=== PATIENT | female | born 1925 | race Caucasian/White ===

== ENCOUNTER 2017-01-12 10:16 | Emergency (ER) | payer OTHER ==
[~2017-01-12] VITALS: Ht 162.6 cm; Wt 65.0 kg
[2017-01-12] VITALS (7 sets, daily range): BP systolic 111–151; BP diastolic 62–95; PULSE 68–109; RESP 18–20; TEMP 98.1; O2SAT 94–97
[~2017-01-12 10:16] MED LIST: ACET5TAB2 PO; CALTTAB PO; FURO20TA PO; GLIM1TAB PO; LEVOTAB PO; LOMO2.5T PO; LORA10TA PO; LOSA25TA PO; OMEP40CA2 PO; RANI150T PO; ZOCO20TA PO
[2017-01-12] MEDS ORDERED: SODIUM CHLORIDE 0.9% FLUSH 5 ML FLUSH IVF PRN (12:15)
[2017-01-12 12:28] LABS: APTT (PATIENT) 26.7 SEC (24.3-30.1); AUTOMATED NEUTROPHIL # 3.1 TH/MM3 (1.8-7.7); BASOPHIL % 0.3 % (0.0-2.0); EOSINOPHIL % 0.6 % (0.0-4.0); HEMATOCRIT 37.9 % (35.0-46.0); HEMO FLAGS DIFF FINAL; INTERNATIONAL NORMALIZED RATIO 1.1 RATIO; LYMPH % 33.2 % (9.0-44.0); LYMPHOCYTE # 1.8 TH/MM3 (1.0-4.8); MEAN CELL VOLUME 91.7 FL (80.0-100.0); MEAN CORPUSCULAR HEMOGLOBIN 31.3 PG (27.0-34.0); MEAN CORPUSCULAR HGB CONC 34.1 % (32.0-36.0); MONO % 8.5 % (0.0-8.0); NEUT % 57.4 % (16.0-70.0); PLATELET COUNT 184 TH/MM3 (150-450); PROTHROMBIN TIME - PATIENT 12.1 SEC (9.8-11.6); RED BLOOD COUNT 4.13 MIL/MM3 (4.00-5.30); RED CELL DISTRIBUTION WIDTH 13.5 % (11.6-17.2); WHITE BLOOD COUNT 5.4 TH/MM3 (4.0-11.0)
[2017-01-12 12:42] LABS: ALT (GPT) 20 U/L (10-53); ANION GAP 12 MEQ/L (5-15); AST (GOT) 19 U/L (15-37); BICARBONATE 26.1 MEQ/L (21.0-32.0); BLOOD UREA NITROGEN 9 MG/DL (7-18); CHLORIDE 107 MEQ/L (98-107); GLOMERULAR FILTRATION RATE 68 ML/MIN (>89); POTASSIUM 3.2 MEQ/L (3.5-5.1); SODIUM (NA) 145 MEQ/L (136-145)
[2017-01-12 12:44] LABS: ALKALINE PHOSPHATASE 54 U/L (45-117); TOTAL BILIRUBIN ADULT 0.5 MG/DL (0.2-1.0)
[2017-01-12] MEDS ORDERED: METF500T PO (13:27)
[2017-01-12] MEDS ORDERED: [UNRECOGNIZED DRUG - CODE] CHEW (13:33)
[2017-01-12] MEDS ORDERED: TRIA.1%T TOPICAL (13:33)
[2017-01-12] MEDS ORDERED: ZIPR1CAP6 PO (13:33)
[2017-01-12] MEDS ORDERED: CYANOCOBALAMIN CHEW (13:33)
[2017-01-12] MEDS ORDERED: ASCO1CHW3 CHEW (13:33)
--- NOTE | 2017-01-12 13:42 | PD ---
HPI Chief Complaint: Psychiatric Symptoms Time Seen by Provider: 12:00 Travel History International Travel<30 days: No Contact w/Intl Traveler<30days: No Traveled to known affect area: No History of Present Illness HPI 89-year-old female presents through triage by referral with her primary care physician for auditory hallucinations of hearing music that is not there. She states she has had this happen to her intermittently since October. She states it is affecting her sleep. She denies other associated symptoms. Patient denies specifically any suicidal ideation or pain. History is limited by patient. PFSH Past Medical History Arthritis: Yes (KNEES) Asthma: No Autoimmune Disease: No Blood Disorders: No Heart Rhythm Problems: No Cancer: Yes (THROAT) Cardiovascular Problems: Yes (HTN, CHOL) High Cholesterol: Yes Chemotherapy: Yes (LYMPHOMA) Chest Pain: No Congestive Heart Failure: No COPD: No Cerebrovascular Accident: No Diabetes: Yes Patient Takes Glucophage: Yes Diminished Hearing: No Endocrine: Yes Gastrointestinal Disorders: Yes GERD: Yes Glaucoma: Yes (LEFT EYE, USES DROPS) Genitourinary: Yes (PESSARY FOR FALLEN BLADDER) Headaches: Yes Hepatitis: No Hiatal Hernia: No Hypertension: Yes Immune Disorder: No Implanted Vascular Access Dvce: Yes (removed) Kidney Stones: No Musculoskeletal: Yes Neurologic: Yes Psychiatric: No Reproductive: Yes (HYSTERECTOMY FOR FIBROID AFTER 3RD CHILD([id number])) Respiratory: No Migraines: Yes Myocardial Infarction: No Radiation Therapy: No Renal Failure: No Seizures: No Sickle Cell Disease: No Sleep Apnea: No Ulcer: No Influenza Vaccination: Yes Menopausal: Yes Past Surgical History Abdominal Surgery: No AICD: No Appendectomy: No Arteriovenous Shunt: No Cardiac Surgery: No Cholecystectomy: Yes Ear Surgery: No Endocrine Surgery: No Eye Surgery: Yes Genitourinary Surgery: No Gynecologic Surgery: Yes (HYSTER) Hysterectomy: Yes Insulin Pump: No Joint Replacement: Yes (lanny knee) Neurologic Surgery: No Oral Surgery: Yes (TEETH REMOVED FOR DENTURES) Pacemaker: No Thoracic Surgery: No Other Surgery: Yes Social History Alcohol Use: No Tobacco Use: No Substance Use: No Allergies-Medications (Allergen,Severity, Reaction): Coded Allergies: Codeine (Verified Allergy, Severe, Nausea/Vomiting/diarrhea, 10/22/16) Penicillin (Verified Allergy, Severe, Nausea/Vomiting/diarrhea, 10/22/16) Sulfa (Verified Allergy, Severe, Nausea/Vomiting, 10/22/16) Cipro (Verified Allergy, Intermediate, Nausea/Vomiting, 10/22/16) Latex (Verified Allergy, Unknown, 10/22/16) Uncoded Allergies: MILK & MILK PRODUCTS (Allergy, Intermediate, STOMACH PAINS/, 09/29/15) Reported Meds & Prescriptions Reported Meds & Active Scripts Active Lomotil (Diphenoxylate-Atropine) 2.5-0.025 Mg Tab 1 Tab PO Q6H PRN 3 Days Reported Vitamin C Gummies (Ascorbic Acid) 120 Mg Chew 240 Mg CHEW DAILY D3 Adult Gummy (Cholecalciferol) 1,000 Unit Chew 2,000 Units CHEW DAILY [B 12 Gummies] 2 Chew CHEW DAILY Triamcinolone Topical (Triamcinolone Acetonide) 0.1% Cream 1 Applic TOPICAL DAILY PRN Ziprasidone 20 Mg Cap 20 Mg PO HS Metformin (Metformin HCl) 500 Mg Tab 500 Mg PO BID With meals Loratadine 10 Mg Tab 10 Mg PO DAILY Arthritis Pain ER 8 HR (Acetaminophen) 650 Mg Tab 650 Mg PO BID Zocor (Simvastatin) 20 Mg Tab 20 Mg PO AC DINNER Losartan (Losartan Potassium) 25 Mg Tab 25 Mg PO DAILY Omeprazole 40 Mg Cap 40 Mg PO AC DINNER Review of Systems Except as stated in HPI: all other systems reviewed are Neg Physical Exam Narrative GENERAL: Well-nourished, well-developed patient. SKIN: Warm and dry. HEAD: Normocephalic and atraumatic. EYES: No injection or drainage. ENT: No nasal drainage noted. NECK: Supple, trachea midline. CARDIOVASCULAR: Regular rate and rhythm RESPIRATORY: no increased effort. No accessory muscle use. NEUROLOGICAL: Awake and alert. Motor and sensory grossly within normal limits. Normal speech. Data Data Last Documented VS Vital Signs Date Time Temp Pulse Resp B/P Pulse Ox O2 Delivery O2 Flow Rate FiO2 01/12/17 14:00 78 18 119/64 96 Room Air 01/12/17 10:20 98.1 Orders Electrocardiogram (01/12/17 12:01) Complete Blood Count With Diff (01/12/17 12:01) Comprehensive Metabolic Panel (01/12/17 12:01) Prothrombin Time / Inr (Pt) (01/12/17 12:01) Act Partial Throm Time (Ptt) (01/12/17 12:01) Urinalysis - C+S If Indicated (01/12/17 12:01) Ct Brain W/O Iv Contrast(Rout) (01/12/17 12:01) Blood Glucose (01/12/17 12:01) Ecg Monitoring (01/12/17 12:01) Iv Access Insert/Monitor (01/12/17 12:) Oximetry (01/12/17 12:01) Sodium Chloride 0.9% Flush (Ns Flush) (01/12/17 12:15) Drug Screen, Random Urine (01/12/17 12:01) Alcohol (Ethanol) (01/12/17 12:01) Sodium Chlor 0.9% 1000 Ml Inj (Ns 1000 M (01/12/17 14:15) Potassium Chloride (Kcl) (01/12/17 14:15) Cath For Specimen (01/12/17 14:31) Psych Screen (01/12/17 14:39) Potassium Chloride Eff (K-Lyte Cl Eff) (01/12/17 14:45) Labs Laboratory Tests Test 01/12/17 01/12/17 12:10 14:40 White Blood Count 5.4 TH/MM3 Red Blood Count 4.13 MIL/MM3 Hemoglobin 12.9 GM/DL Hematocrit 37.9 % Mean Corpuscular Volume 91.7 FL Mean Corpuscular Hemoglobin 31.3 PG Mean Corpuscular Hemoglobin 34.1 % Concent Red Cell Distribution Width 13.5 % Platelet Count 184 TH/MM3 Mean Platelet Volume 10.2 FL Neutrophils (%) (Auto) 57.4 % Lymphocytes (%) (Auto) 33.2 % Monocytes (%) (Auto) 8.5 % Eosinophils (%) (Auto) 0.6 % Basophils (%) (Auto) 0.3 % Neutrophils # (Auto) 3.1 TH/MM3 Lymphocytes # (Auto) 1.8 TH/MM3 Monocytes # (Auto) 0.5 TH/MM3 Eosinophils # (Auto) 0.0 TH/MM3 Basophils # (Auto) 0.0 TH/MM3 CBC Comment DIFF FINAL Differential Comment Prothrombin Time 12.1 SEC Prothromb Time International 1.1 RATIO Ratio Activated Partial 26.7 SEC Thromboplast Time Sodium Level 145 MEQ/L Potassium Level 3.2 MEQ/L Chloride Level 107 MEQ/L Carbon Dioxide Level 26.1 MEQ/L Anion Gap 12 MEQ/L Blood Urea Nitrogen 9 MG/DL Creatinine 0.80 MG/DL Estimat Glomerular Filtration 68 ML/MIN Rate Random Glucose 151 MG/DL Calcium Level 7.8 MG/DL Total Bilirubin 0.5 MG/DL Aspartate Amino Transf 19 U/L (AST/SGOT) Alanine Aminotransferase 20 U/L (ALT/SGPT) Alkaline Phosphatase 54 U/L Total Protein 7.1 GM/DL Albumin 4.0 GM/DL Ethyl Alcohol Level LESS THAN 3 MG/DL Urine Color YELLOW Urine Turbidity CLEAR Urine pH 6.0 Urine Specific [place] 1.021 Urine Protein TRACE mg/dL Urine Glucose (UA) NEG mg/dL Urine Ketones NEG mg/dL Urine Occult Blood NEG Urine Nitrite NEG Urine Bilirubin NEG Urine Urobilinogen 2.0 MG/DL Urine Leukocyte Esterase NEG Urine WBC LESS THAN 1 /hpf Urine Mucus FEW /lpf Microscopic Urinalysis Comment CATH-CULT NOT IND Urine Opiates Screen NEG Urine Barbiturates Screen NEG Urine Amphetamines Screen NEG Urine Benzodiazepines Screen NEG Urine Cocaine Screen NEG Urine Cannabinoids Screen NEG MDM Medical Decision Making Medical Screen Exam Complete: Yes Emergency Medical Condition: Yes Medical Record Reviewed: Yes (pmh confirmed) Interpretation(s) CBC & BMP Diagram 01/12/17 12:10 Last [address] 01/12/17 1201 Signed Impressions: Service Date/Time: Thursday, January 12, 2017 12:22 - CONCLUSION: No acute intracranial abnormality demonstrated. Josse Vega MD no acute Differential Diagnosis Mass, electrolyte abnormality, UTI.... Narrative Course Will check blood work, urinalysis, CT brain and dose with IV fluids and reevaluate ed workup no emergent findings, potassium replaced, Mental health screening discussed with the patient. Psychiatric screen ordered. Diagnosis Primary Impression: Auditory hallucinations Additional Impression: Hypokalemia Imelda Milan MD Jan 12, 2017 13:42
[2017-01-12] MEDS ORDERED: SODIUM CHLOR 0.9% 1000 ML INJ 1,000 ML IV ONE (14:15)
[2017-01-12] MEDS ORDERED: POTASSIUM CHLORIDE 20 MEQ CONTROLLED RELEASE TAB PO ONE (14:15)
--- NOTE | 2017-01-12 14:28 | RADRPT ---
EXAM DATE/TIME: 01/12/2017 12:22 [facility] COMPARISON: No previous studies available for comparison. INDICATIONS : Altered mental status. RADIATION DOSE: 56.78 CTDIvol (mGy) MEDICAL HISTORY : Cardiovascular disease. Hypertension. Lymphoma.Throat cancer. SURGICAL HISTORY : None. ENCOUNTER: Initial ACUITY: 1 day PAIN SCALE: 0/10 LOCATION: cranial TECHNIQUE: Multiple contiguous axial images were obtained of the head. Using automated exposure control and adj ustment of the mA and/or kV according to patient size, radiation dose was kept as low as reasonably a chievable to obtain optimal diagnostic quality images. FINDINGS: CEREBRUM: The ventricles are normal for age. No evidence of midline shift, mass lesion, hemorrhage or acute in farction. No extra-axial fluid collections are seen. POSTERIOR FOSSA: The cerebellum and brainstem are intact. The 4th ventricle is midline. The cerebellopontine angle i s unremarkable. EXTRACRANIAL: The visualized portion of the orbits is intact. SKULL: The calvaria is intact. No evidence of skull fracture. CONCLUSION: No acute intracranial abnormality demonstrated. Josse Vega MD on January 12, 2017 at 14:26 Board Certified Radiologist. This report was verified electronically.
[2017-01-12] MEDS ORDERED: POTASSIUM CHLORIDE 25 MEQ EFFERVESCENT TAB PO ONE (14:45)
[2017-01-12 15:08] LABS: AMPHETAMINE, URINE NEG (NEG); BARBITURATES, URINE NEG (NEG); COCAINE, URINE NEG (NEG)
[2017-01-12 15:11] LABS: BLOOD, URINE NEG (NEG); GLUCOSE,URINE NEG (NEG); KETONE, URINE NEG (NEG); MUCUS URINE FEW /lpf (OCC); NITRITE,URINE NEG (NEG); URINE COLOR YELLOW (YELLW/STRAW)
[2017-01-12 15:13] LABS: COMMENT (UR) CATH-CULT NOT IND; CULTURE IF INDICATED CATH CULTURE NOT IND
[2017-01-13 04:00] VITALS: BP 126/70; PULSE 72; RESP 20; O2SAT 96
[2017-01-13 07:05] VITALS: BP 125/70; PULSE 72; RESP 20; O2SAT 96
[2017-01-13] MEDS ORDERED: metFORMIN HCL 500 MG TAB PO SCH (09:00)
[2017-01-13] MEDS ORDERED: PANTOPRAZOLE SOD 20 MG DELAYED RELEASE TAB PO SCH (09:00)
[2017-01-13] MEDS ORDERED: LOSARTAN 25 MG TAB PO SCH (09:00)
[2017-01-13] MEDS ORDERED: ACETAMINOPHEN 325 MG TAB PO SCH (09:00)
--- NOTE | 2017-01-13 09:43 | PD ---
History of Present Illness Chief Complaint: Psychiatric Symptoms Time Seen by Provider: 09:15 Travel History International Travel<30 Days: No Contact w/Intl Traveler<30days: No Known affected area: No Legal Status Legal Status: Voluntary History of Present Illness: History of Present Illness HPI 89-year-old female with no psychiatric history presents to [facility] ED on a voluntary basis referred by her PCP for psychiatric evaluation . As per the patient who appears to be a reliable historian she began experiencing musical auditory hallucinations intermittently since October after she fell and hit her head. Initially the experience was persistent but that a t present it is on an intermittent basis.She reports no other symptoms. Her PCP prescribed Geodon which she took for approximately one week but stopped it because it made her feel sedated the next morning. She states it is affecting her sleep with sleeping approximately 4 hours per night. Reports having a good appetite and that she keeps herself busy with her housework. She is active and still drives her car. Patient seen. Record reviewed. She has no previous contact with [facility] psychiatric department. Her toxicology is negative and she denies any alcohol or any other substance use. Patient seen in main ED. Awake, alert and oriented x 4. Calm and engaging, cooperative. She is frustrated with being here in the hospital. Speech is clear , logical and goal directed.There is no indication that she is experiencing any hallucinations, no delusions and no paranoia. She denies any significant depression or anxiety although she is sad over multiple losses in the past few years. She denies any suicidal or homicidal ideation. [facility] Past Medical History Arthritis: Yes (KNEES) Asthma: No Autoimmune Disease: No Blood Disorders: No Heart Rhythm Problems: No Cancer: Yes (THROAT) Cardiovascular Problems: Yes (HTN, CHOL) High Cholesterol: Yes Chemotherapy: Yes (LYMPHOMA) Chest Pain: No Congestive Heart Failure: No COPD: No Cerebrovascular Accident: No Diabetes: Yes Patient Takes Glucophage: Yes Diminished Hearing: No Endocrine: Yes Gastrointestinal Disorders: Yes GERD: Yes Glaucoma: Yes (LEFT EYE, USES DROPS) Genitourinary: Yes (PESSARY FOR FALLEN BLADDER) Headaches: Yes Hepatitis: No Hiatal Hernia: No Hypertension: Yes Immune Disorder: No Implanted Vascular Access Dvce: Yes (removed) Kidney Stones: No Musculoskeletal: Yes Neurologic: Yes Psychiatric: No Reproductive: Yes (HYSTERECTOMY FOR FIBROID AFTER 3RD CHILD([id number])) Respiratory: No Migraines: Yes Myocardial Infarction: No Radiation Therapy: No Renal Failure: No Seizures: No Sickle Cell Disease: No Sleep Apnea: No Ulcer: No Influenza Vaccination: Yes Menopausal: Yes Past Surgical History Abdominal Surgery: No AICD: No Appendectomy: No Arteriovenous Shunt: No Cardiac Surgery: No Cholecystectomy: Yes Ear Surgery: No Endocrine Surgery: No Eye Surgery: Yes Genitourinary Surgery: No Gynecologic Surgery: Yes (HYSTER) Hysterectomy: Yes Insulin Pump: No Joint Replacement: Yes (lanny knee) Neurologic Surgery: No Oral Surgery: Yes (TEETH REMOVED FOR DENTURES) Pacemaker: No Thoracic Surgery: No Other Surgery: Yes Psychiatric History Psychiatric History Hx Psychiatric Treatment: No previous psychiatric history History of Inpatient Treatment: No Guns or firearms in home: No Social History female. x 23 years. in 2009. Lives by herself. Retired. Born in [place]. Worked as a workers compensation legal secretary. Hx Alcohol Use: No Hx Tobacco Use: No Hx Substance Use: No Hx of Substance Use Treatment: No Family Psychiatric History None Allergies-Medications (Allergen,Severity, Reaction): Coded Allergies: Codeine (Verified Allergy, Severe, Nausea/Vomiting/diarrhea, 10/22/16) Penicillin (Verified Allergy, Severe, Nausea/Vomiting/diarrhea, 10/22/16) Sulfa (Verified Allergy, Severe, Nausea/Vomiting, 10/22/16) Cipro (Verified Allergy, Intermediate, Nausea/Vomiting, 10/22/16) Latex (Verified Allergy, Unknown, 10/22/16) Uncoded Allergies: MILK & MILK PRODUCTS (Allergy, Intermediate, STOMACH PAINS/, 09/29/15) Reported Meds & Prescriptions Reported Meds & Active Scripts Active Lomotil (Diphenoxylate-Atropine) 2.5-0.025 Mg Tab 1 Tab PO Q6H PRN 3 Days Reported Vitamin C Gummies (Ascorbic Acid) 120 Mg Chew 240 Mg CHEW DAILY D3 Adult Gummy (Cholecalciferol) 1,000 Unit Chew 2,000 Units CHEW DAILY [B 12 Gummies] 2 Chew CHEW DAILY Triamcinolone Topical (Triamcinolone Acetonide) 0.1% Cream 1 Applic TOPICAL DAILY PRN Ziprasidone 20 Mg Cap 20 Mg PO HS Metformin (Metformin HCl) 500 Mg Tab 500 Mg PO BID With meals Loratadine 10 Mg Tab 10 Mg PO DAILY Arthritis Pain ER 8 HR (Acetaminophen) 650 Mg Tab 650 Mg PO BID Zocor (Simvastatin) 20 Mg Tab 20 Mg PO AC DINNER Losartan (Losartan Potassium) 25 Mg Tab 25 Mg PO DAILY Omeprazole 40 Mg Cap 40 Mg PO AC DINNER Review of Systems Constitutional: DENIES: Diaphoretic episodes, Fatigue, Fever, Weight gain, Weight loss, Chills, Dizziness, Change in appetite, Night Sweats Endocrine: DENIES: Abnorml menstrual pattern, Heat/cold intolerance, Polydipsia , Polyuria, Polyphagia Eyes: DENIES: Blurred vision, Diplopia, Eye inflammation, Eye pain, Vision loss , Photosensitivity, Double Vision Ears, nose, mouth, throat: DENIES: Tinnitus, Hearing loss, Vertigo, Nasal discharge, Oral lesions, Throat pain, Hoarseness, Ear Pain, Running Nose, Epistaxis, Sinus Pain, Toothache, Odynophagia Respiratory: DENIES: Apneas, Cough, Snoring, Wheezing, Hemoptysis, Sputum production, Shortness of breath Cardiovascular: DENIES: Chest pain, Palpitations, Syncope, Dyspnea on Exertion , PND, Lower Extremity Edema, Orthopnea, Claudication Gastrointestinal: DENIES: Abdominal pain, Black stools, Bloody stools, Constipation, Diarrhea, Nausea, Vomiting, Difficulty Swallowing, Anorexia Genitourinary: DENIES: Abnormal vaginal bleeding, Dysmenorrhea, Dyspareunia, Sexual dysfunction, Urinary frequency, Urinary incontinence, Urgency, Hematuria , Dysuria, Nocturia, Vaginal discharge Musculoskeletal: COMPLAINS OF: Joint pain, Stiffness, Back pain Integumentary: DENIES: Abnormal pigmentation, Pruritus, Rash, Nail changes, Breast masses, Breast skin changes, Nipple discharge Hematologic/lymphatic: DENIES: Bruising, Lymphadenopathy Immunologic/allergic: DENIES: Eczema, Urticaria Neurologic: DENIES: Abnormal gait, Headache, Localized weakness, Paresthesias, Seizures, Speech Problems, Tremor, Poor Balance Psychiatric: COMPLAINS OF: Hallucinations (xavier music) Exam Alert: Yes Coats: Person (0x4) Mood: Anxious, Calm Affect: Euthymic Speech: Clear, Logical Eye Contact: Normal Memory Intact: Comment (no gross impairmetn) Hallucinations: Auditory (Intermittent music) Delusions: No Suicidal: Ideation (denies any) Homicidal: Ideation (deneis any) Insight/Judgement Fair. Not impaired. MDM Medical Decision Making Medical Record Reviewed: Yes Assessment/Plan 89 year old female under a voluntary status who is referred to ED by her PCP for psychiatric evaluation as she has been reporting musical auditory hallucinations since she sustained a fall in October. Initially she was hearing the [employer] music music all the time but now it's only intermittently. This condition usually presents after hearing loss although it can be seen in older adults or even someone who has some depression or anxiety . Her PCP has started her on Geodon which she has s topped due to sedation. . She has been trying to get an appointment with a psychiatrist and has one for February. At this time she does not meet criteria for BA or for inpatient psychiatric treatment. I will recommend melatonin for sleep. Cleared from psychiatry for discharge. She will be provided with numbers for area psychiatrist for evaluation and treatment for further evaluation and outpatient treatment. . Orders Electrocardiogram (01/12/17 12:) Complete Blood Count With Diff (01/12/17 12:) Comprehensive Metabolic Panel (01/12/17 12:) Prothrombin Time / Inr (Pt) (01/12/17 12:) Act Partial Throm Time (Ptt) (01/12/17 12:) Urinalysis - C+S If Indicated (01/12/17 12:) Ct Brain W/O Iv Contrast(Rout) (01/12/17 12:) Blood Glucose (01/12/17 12:) Ecg Monitoring (01/12/17 12:) Iv Access Insert/Monitor (01/12/17 12:) Oximetry (01/12/17 12:) Sodium Chloride 0.9% Flush (Ns Flush) (01/12/17 12:15) Drug Screen, Random Urine (01/12/17 12:) Alcohol (Ethanol) (01/12/17 12:) Sodium Chlor 0.9% 1000 Ml Inj (Ns 1000 M (01/12/17 14:15) Potassium Chloride (Kcl) (01/12/17 14:15) Cath For Specimen (01/12/17 14:31) Psych Screen (01/12/17 14:39) Potassium Chloride Eff (K-Lyte Cl Eff) (01/12/17 14:45) Diet 2000 [place] Cons Carb (01/13/17 Breakfast) Pantoprazole (Protonix) (01/13/17 09:00) Losartan (Cozaar) (01/13/17 09:00) Metformin (Glucophage) (01/13/17 09:00) Ziprasidone (Geodon) (01/13/17 21:00) Acetaminophen (Tylenol) (01/13/17 09:00) Results Vital Signs Date Time Temp Pulse Resp B/P Pulse Ox O2 Delivery O2 Flow Rate FiO2 01/13/17 07:05 72 20 125/70 96 Room Air 01/13/17 04:00 72 20 126/70 96 Room Air 01/12/17 23:43 76 20 130/67 96 Room Air 01/12/17 19:52 72 20 125/66 96 Room Air 01/12/17 18:32 77 19 151/70 94 Room Air 01/12/17 16:00 68 20 111/62 97 Room Air 01/12/17 14:00 78 18 119/64 96 Room Air 01/12/17 12:07 97 Room Air 01/12/17 10:25 16 01/12/17 10:20 98.1 109 18 151/95 96 Laboratory Tests Test 01/12/17 01/12/17 12:10 14:40 White Blood Count 5.4 Red Blood Count 4.13 Hemoglobin 12.9 Hematocrit 37.9 Mean Corpuscular Volume 91.7 Mean Corpuscular Hemoglobin 31.3 Mean Corpuscular Hemoglobin 34.1 Concent Red Cell Distribution Width 13.5 Platelet Count 184 Mean Platelet Volume 10.2 Neutrophils (%) (Auto) 57.4 Lymphocytes (%) (Auto) 33.2 Monocytes (%) (Auto) 8.5 Eosinophils (%) (Auto) 0.6 Basophils (%) (Auto) 0.3 Neutrophils # (Auto) 3.1 Lymphocytes # (Auto) 1.8 Monocytes # (Auto) 0.5 Eosinophils # (Auto) 0.0 Basophils # (Auto) 0.0 CBC Comment DIFF FINAL Differential Comment Prothrombin Time 12.1 Prothromb Time International 1.1 Ratio Activated Partial 26.7 Thromboplast Time Sodium Level 145 Potassium Level 3.2 Chloride Level 107 Carbon Dioxide Level 26.1 Anion Gap 12 Blood Urea Nitrogen 9 Creatinine 0.80 Estimat Glomerular Filtration 68 Rate Random Glucose 151 Calcium Level 7.8 Total Bilirubin 0.5 Aspartate Amino Transf 19 (AST/SGOT) Alanine Aminotransferase 20 (ALT/SGPT) Alkaline Phosphatase 54 Total Protein 7.1 Albumin 4.0 Ethyl Alcohol Level LESS THAN 3 Urine Color YELLOW Urine Turbidity CLEAR Urine pH 6.0 Urine Specific [place] 1.021 Urine Protein TRACE Urine Glucose (UA) NEG Urine Ketones NEG Urine Occult Blood NEG Urine Nitrite NEG Urine Bilirubin NEG Urine Urobilinogen 2.0 Urine Leukocyte Esterase NEG Urine WBC LESS THAN 1 Urine Mucus FEW Microscopic Urinalysis Comment CATH-CULT NOT IND Urine Opiates Screen NEG Urine Barbiturates Screen NEG Urine Amphetamines Screen NEG Urine Benzodiazepines Screen NEG Urine Cocaine Screen NEG Urine Cannabinoids Screen NEG Diagnosis Primary Impression: musical ear syndrome Additional Impressions: Hypokalemia Adjustment disorder Psychiatrically Cleared: Yes Med/ Other Pt Specific Info: No Change to Meds Disposition: 01 DISCHARGE HOME Condition: Stable Problem Qualifiers Additional Impressions: Adjustment disorder Qualified Code: F43.23 - Adjustment disorder with mixed anxiety and depressed mood Madonna Jin Jan 13, 2017 09:43
[2017-01-13 10:02] VITALS: BP 164/79; PULSE 76; RESP 20; O2SAT 96
--- NOTE | 2017-01-13 14:40 | EKG ---
Date Performed: 01/12/2017 Time Performed: 12:17:38 PTAGE: 89 years EKG: Sinus rhythm Left axis deviation Otherwise within normal limits Compared to prior tracing no significant change PREVIOUS TRACING : 10/18/2016 16.17 DOCTOR: Donovan Hernadez Interpretating Date/Time 01/13/2017 14:38:24
[2017-01-13] MEDS ORDERED: ZIPRASIDONE HCL 40 MG CAP PO SCH (21:00)
== END 2017-01-13 10:35 | disposition home or self-care (01) ==
LOC: NEPC 10:16 → NEPA 01-13 10:35
DX: R44.0 Auditory hallucinations (principal); E87.6 Hypokalemia; F43.20 Adjustment disorder, unspecified; H93.8X9 Other specified disorders of ear, unspecified ear; I10 Essential (primary) hypertension; E11.9 Type 2 diabetes mellitus without complications; E78.00 Pure hypercholesterolemia, unspecified; Z79.84 Long term (current) use of oral hypoglycemic drugs; Z87.39 Personal history of other diseases of the musculoskeletal system and connective tissue; Z85.89 Personal history of malignant neoplasm of other organs and systems; Z86.79 Personal history of other diseases of the circulatory system; Z87.19 Personal history of other diseases of the digestive system; Z86.69 Personal history of other diseases of the nervous system and sense organs; Z87.448 Personal history of other diseases of urinary system
CPT/HCPCS: 70450; 80053; 80307; 81001; 85025; 85610; 85730; 93005; 96360; 96361; 99284; J7030; P9612

== ENCOUNTER 2017-01-14 14:38 | Inpatient (IN) | payer OTHER, MEDICARE ==
[2017-01-14] VITALS (9 sets, daily range): BP systolic 98–164; BP diastolic 47–84; PULSE 68–86; RESP 18–26; TEMP 97.9; O2SAT 96–100
[~2017-01-14] VITALS: Ht 160 cm; Wt 65.0 kg
[~2017-01-14 14:38] MED LIST changes: +ASCO1CHW3 CHEW; -CALTTAB PO; +CYANOCOBALAMIN CHEW; -FURO20TA PO; -GLIM1TAB PO; -LEVOTAB PO; +METF500T PO; -RANI150T PO; +TRIA.1%T TOPICAL; +ZIPR1CAP6 PO; +[UNRECOGNIZED DRUG - CODE] CHEW
[2017-01-14] MEDS ORDERED: SODIUM CHLORIDE 0.9% FLUSH 5 ML FLUSH IVF PRN (15:00)
[2017-01-14] MEDS ORDERED: LORazepam 2 MG/ML VIAL IV PUSH ONE (15:00)
--- NOTE | 2017-01-14 15:08 | PD ---
HPI Chief Complaint: Anxiety Time Seen by Provider: 14:58 Travel History International Travel<30 days: No Contact w/Intl Traveler<30days: No Traveled to known affect area: No History of Present Illness HPI 89-year-old female with history of remote lymphoma status post treatment, hypertension, seen recently for falls and seen yesterday for auditory hallucinations, released home with follow-up to psychiatry as an outpatient, presents to the ER today because she states that she has been having shortness of breath, feeling tingling in both hands and her face and all over. She has been nauseous. She denies any chest pains, fevers, coughing, or any other symptoms. She states that she had similar symptoms before as well and she was given the medication to help her relax at the hospital and she went to sleep. She denies any suicidal or homicidal ideation. Modifying Factors: None Associated Signs & Symptoms: Shortness of breath, nausea, paresthesias in the face and hands Risk Factors: Recent auditory hallucinations PFSH Past Medical History Arthritis: Yes (KNEES) Asthma: No Autoimmune Disease: No Blood Disorders: No Heart Rhythm Problems: No Cancer: Yes (THROAT) Cardiovascular Problems: Yes (HTN, CHOL) High Cholesterol: Yes Chemotherapy: Yes (LYMPHOMA) Chest Pain: No Congestive Heart Failure: No COPD: No Cerebrovascular Accident: No Diabetes: Yes Patient Takes Glucophage: Yes Diminished Hearing: No Endocrine: Yes Gastrointestinal Disorders: Yes GERD: Yes Glaucoma: Yes (LEFT EYE, USES DROPS) Genitourinary: Yes (PESSARY FOR FALLEN BLADDER) Headaches: Yes Hepatitis: No Hiatal Hernia: No Hypertension: Yes Immune Disorder: No Implanted Vascular Access Dvce: Yes (removed) Kidney Stones: No Musculoskeletal: Yes Neurologic: Yes Psychiatric: No Reproductive: Yes (HYSTERECTOMY FOR FIBROID AFTER 3RD CHILD([id number])) Respiratory: No Migraines: Yes Myocardial Infarction: No Radiation Therapy: No Renal Failure: No Seizures: No Sickle Cell Disease: No Sleep Apnea: No Ulcer: No Influenza Vaccination: Yes ?: Not Menopausal: Yes Past Surgical History Abdominal Surgery: No AICD: No Appendectomy: No Arteriovenous Shunt: No Cardiac Surgery: No Cholecystectomy: Yes Ear Surgery: No Endocrine Surgery: No Eye Surgery: Yes Genitourinary Surgery: No Gynecologic Surgery: Yes (HYSTER) Hysterectomy: Yes Insulin Pump: No Joint Replacement: Yes (lanny knee) Neurologic Surgery: No Oral Surgery: Yes (TEETH REMOVED FOR DENTURES) Pacemaker: No Thoracic Surgery: No Other Surgery: Yes Social History Alcohol Use: No Tobacco Use: No Substance Use: No Allergies-Medications (Allergen,Severity, Reaction): Coded Allergies: Codeine (Verified Allergy, Severe, Nausea/Vomiting/diarrhea, 01/14/17) Penicillin (Verified Allergy, Severe, Nausea/Vomiting/diarrhea, 01/14/17) Sulfa (Verified Allergy, Severe, Nausea/Vomiting, 01/14/17) Cipro (Verified Allergy, Intermediate, Nausea/Vomiting, 01/14/17) Latex (Verified Allergy, Unknown, 01/14/17) Uncoded Allergies: MILK & MILK PRODUCTS (Allergy, Intermediate, STOMACH PAINS/, 09/29/15) Reported Meds & Prescriptions Reported Meds & Active Scripts Active Lomotil (Diphenoxylate-Atropine) 2.5-0.025 Mg Tab 1 Tab PO Q6H PRN 3 Days Reported Vitamin C Gummies (Ascorbic Acid) 120 Mg Chew 240 Mg CHEW DAILY D3 Adult Gummy (Cholecalciferol) 1,000 Unit Chew 2,000 Units CHEW DAILY [B 12 Gummies] 2 Chew CHEW DAILY Triamcinolone Topical (Triamcinolone Acetonide) 0.1% Cream 1 Applic TOPICAL DAILY PRN Ziprasidone 20 Mg Cap 20 Mg PO HS Metformin (Metformin HCl) 500 Mg Tab 500 Mg PO BID With meals Loratadine 10 Mg Tab 10 Mg PO DAILY Arthritis Pain ER 8 HR (Acetaminophen) 650 Mg Tab 650 Mg PO BID Zocor (Simvastatin) 20 Mg Tab 20 Mg PO AC DINNER Losartan (Losartan Potassium) 25 Mg Tab 25 Mg PO DAILY Omeprazole 40 Mg Cap 40 Mg PO AC DINNER Review of Systems Except as stated in HPI: all other systems reviewed are Neg Physical Exam Narrative GENERAL: Well-developed anxious appearing elderly white female in moderate distress. She is awake, alert, oriented 3. SKIN: Warm and dry. HEAD: Atraumatic. Normocephalic. EYES: Pupils equal and round. No scleral icterus. No injection or drainage. ENT: No nasal bleeding or discharge. Mucous membranes pink and moist. NECK: Trachea midline. No JVD. CARDIOVASCULAR: Regular rate and rhythm. No murmur appreciated. RESPIRATORY: No accessory muscle use. Clear to auscultation. Breath sounds equal bilaterally. GASTROINTESTINAL: Abdomen soft, non-tender, nondistended. Hepatic and splenic margins not palpable. MUSCULOSKELETAL: No obvious deformities. No clubbing. No cyanosis. No edema. NEUROLOGICAL: Awake and alert. No obvious cranial nerve deficits. Motor grossly within normal limits. Normal speech. PSYCHIATRIC: Appropriate mood and affect; insight and judgment normal. Data Data Last Documented VS Vital Signs Date Time Temp Pulse Resp B/P Pulse Ox O2 Delivery O2 Flow Rate FiO2 01/14/17 18:29 80 18 164/83 99 Room Air 01/14/17 14:42 97.9 Orders Complete Blood Count With Diff (01/14/17 14:59) Basic Metabolic Panel (Bmp) (01/14/17 14:59) B-Type Natriuretic Peptide (01/14/17 14:59) Magnesium (Mg) (01/14/17 14:59) Iv Access Insert/Monitor (01/14/17 14:59) Electrocardiogram (01/14/17 14:59) Ecg Monitoring (01/14/17 14:59) Oximetry (01/14/17 14:59) Oxygen Administration (01/14/17 14:59) Chest, Single Ap (01/14/17 14:59) Sodium Chloride 0.9% Flush (Ns Flush) (01/14/17 15:00) Lorazepam Inj (Ativan Inj) (01/14/17 15:00) Lorazepam (Ativan) (01/14/17 15:45) Protein Corrected Calcium(Pcc) (01/14/17 16:50) Potassium Chloride Eff (K-Lyte Cl Eff) (01/14/17 18:15) Magnesium Sulfate 1 Gm Premix (Magnesium (01/14/17 18:30) Calcium Gluconate Inj (Calcium Gluconate (01/14/17 18:30) Labs Laboratory Tests Test 01/14/17 16:50 White Blood Count 6.3 TH/MM3 Red Blood Count 3.87 MIL/MM3 Hemoglobin 11.9 GM/DL Hematocrit 35.7 % Mean Corpuscular Volume 92.1 FL Mean Corpuscular Hemoglobin 30.8 PG Mean Corpuscular Hemoglobin 33.4 % Concent Red Cell Distribution Width 13.4 % Platelet Count 162 TH/MM3 Mean Platelet Volume 9.4 FL Neutrophils (%) (Auto) 64.8 % Lymphocytes (%) (Auto) 26.4 % Monocytes (%) (Auto) 7.1 % Eosinophils (%) (Auto) 0.8 % Basophils (%) (Auto) 0.9 % Neutrophils # (Auto) 3.9 TH/MM3 Lymphocytes # (Auto) 1.7 TH/MM3 Monocytes # (Auto) 0.5 TH/MM3 Eosinophils # (Auto) 0.1 TH/MM3 Basophils # (Auto) 0.1 TH/MM3 CBC Comment DIFF FINAL Differential Comment Sodium Level 146 MEQ/L Potassium Level 3.3 MEQ/L Chloride Level 110 MEQ/L Carbon Dioxide Level 23.4 MEQ/L Anion Gap 13 MEQ/L Blood Urea Nitrogen 9 MG/DL Creatinine 0.77 MG/DL Estimat Glomerular Filtration 71 ML/MIN Rate Random Glucose 161 MG/DL Calcium Level 7.0 MG/DL Protein Corrected Calcium 7.5 MG/DL Magnesium Level 0.7 MG/DL B-Type Natriuretic Peptide 112 PG/ML Total Protein 6.2 GM/DL MDM Medical Decision Making Medical Screen Exam Complete: Yes Emergency Medical Condition: Yes Medical Record Reviewed: Yes Interpretation(s) EKG shows NSR, no ST elevation or depression, and no arrhythmias. No significant T-wave inversions. Laboratory Tests Test 01/14/17 16:50 Red Blood Count 3.87 MIL/MM3 (4.00-5.30) Sodium Level 146 MEQ/L (136-145) Potassium Level 3.3 MEQ/L (3.5-5.1) Chloride Level 110 MEQ/L (98-107) Estimat Glomerular Filtration 71 ML/MIN (>89) Rate Random Glucose 161 MG/DL (74-106) Calcium Level 7.0 MG/DL (8.5-10.1) Protein Corrected Calcium 7.5 MG/DL (8.5-10.1) Magnesium Level 0.7 MG/DL (1.5-2.5) B-Type Natriuretic Peptide 112 PG/ML (0-100) Total Protein 6.2 GM/DL (6.4-8.2) Differential Diagnosis Shortness of breath, anxiety, paresthesiasanxiety attack versus dementia/ sundowning versus pneumonia versus CHF versus metabolic issues Narrative Course Patient was initially given Ativan for anxiety. She responded well and on reevaluation at 6 PM was resting comfortably. I had discussion with the patient regarding her disposition and initially, she has stated that she does not want placement in a nursing care facility. She states that she has had that discussion yesterday and prior admissions as well. Lab work returns showing electrolyte abnormalities. At this point, my plan would be to admit her for electrolyte replacement. Case is discussed with Dr. Arriaza for admission. Diagnosis Primary Impression: Hypokalemia Additional Impressions: Hypocalcemia Hypomagnesemia Admitting Information Admitting Physician Requests: Admit Pretty Neil MD Jan 14, 2017 15:08 Pretty Neil MD Jan 14, 2017 15:08
--- NOTE | 2017-01-14 15:39 | RADHPO ---
EXAM DATE/TIME: 01/14/2017 15:17 [facility] COMPARISON: No previous studies available for comparison. INDICATIONS : Short of breath MEDICAL HISTORY : Diabetes mellitus type II. SURGICAL HISTORY : None. ENCOUNTER: Initial ACUITY: 1 day PAIN SCORE: 0/10 LOCATION: Bilateral chest FINDINGS: A single view of the chest demonstrates the lungs to be symmetrically aerated without evidence of mas s, infiltrate or effusion. The cardiomediastinal contours are unremarkable. Osseous structures are intact. CONCLUSION: No evidence of acute cardiopulmonary disease. Josse Vega MD on January 14, 2017 at 15:37 Board Certified Radiologist. This report was verified electronically.
[2017-01-14] MEDS ORDERED: LORazepam 0.5 MG TAB PO ONE (15:45)
[2017-01-14 17:03] LABS: AUTOMATED NEUTROPHIL # 3.9 TH/MM3 (1.8-7.7); BASOPHIL # 0.1 TH/MM3 (0-0.2); BASOPHIL % 0.9 % (0.0-2.0); EOSINOPHIL # 0.1 TH/MM3 (0-0.4); EOSINOPHIL % 0.8 % (0.0-4.0); HEMATOCRIT 35.7 % (35.0-46.0); HEMO FLAGS DIFF FINAL; LYMPH % 26.4 % (9.0-44.0); LYMPHOCYTE # 1.7 TH/MM3 (1.0-4.8); MEAN CELL VOLUME 92.1 FL (80.0-100.0); MEAN CORPUSCULAR HEMOGLOBIN 30.8 PG (27.0-34.0); MEAN CORPUSCULAR HGB CONC 33.4 % (32.0-36.0); MONO % 7.1 % (0.0-8.0); NEUT % 64.8 % (16.0-70.0); PLATELET COUNT 162 TH/MM3 (150-450); RED BLOOD COUNT 3.87 MIL/MM3 (4.00-5.30); RED CELL DISTRIBUTION WIDTH 13.4 % (11.6-17.2); WHITE BLOOD COUNT 6.3 TH/MM3 (4.0-11.0)
[2017-01-14 17:06] LABS: POTASSIUM 3.3 MEQ/L (3.5-5.1)
[2017-01-14 17:52] LABS: BICARBONATE 23.4 MEQ/L (21.0-32.0); MAGNESIUM 0.7 MG/DL (1.5-2.5)
[2017-01-14] MEDS ORDERED: POTASSIUM CHLORIDE 25 MEQ EFFERVESCENT TAB PO ONE (18:15)
[2017-01-14 18:16] LABS: CALCIUM-PROTEIN CORRECTED 7.5 MG/DL (8.5-10.1)
[2017-01-14] MEDS ORDERED: CALCIUM GLUCONATE INJ 1 GM in SODIUM CHLORIDE 0.9% INJ 100 ML IV ONE (18:30)
[2017-01-14] MEDS ORDERED: MAGNESIUM SULFATE 1 GM PREMIX 100 ML IV ONE (18:30)
[2017-01-14] MEDS ORDERED: ONDANSETRON HCL 4 MG/2 ML VIAL IVP PRN (19:00)
[2017-01-14] MEDS ORDERED: DEXTROSE 50% IN WATER 50 ML VIAL(D50) IV PUSH PRN (19:00)
[2017-01-14] MEDS ORDERED: GLUCAGON 1 MG/ML VIAL OTHER PRN (19:00)
[2017-01-14] MEDS ORDERED: SODIUM CHLORIDE 0.9% FLUSH 5 ML FLUSH FLUSH PRN (19:00)
[2017-01-14] MEDS: SODIUM CHLOR 0.9% 1000 ML INJ 1,000 ML IV SCH (19:23)
[2017-01-14] MEDS: SODIUM CHLORIDE 0.9% FLUSH 5 ML FLUSH FLUSH SCH (21:00)
[2017-01-14] MEDS: INSULIN ASPART SUPPLEMENTAL SCALE SQ SCH (21:00)
[2017-01-14 21:58] LABS: POTASSIUM 3.4 MEQ/L (3.5-5.1)
[2017-01-14 22:53] LABS: MAGNESIUM 0.9 MG/DL (1.5-2.5)
[2017-01-14 23:15] LABS: CALCIUM-PROTEIN CORRECTED 7.6 MG/DL (8.5-10.1)
[2017-01-15 01:30] VITALS: BP 119/72; PULSE 74; RESP 20; O2SAT 98
[2017-01-15 03:00] VITALS: BP 115/84
[2017-01-15 03:22] VITALS: BP 145/78; PULSE 79; RESP 22; TEMP 96.8; O2SAT 97
[2017-01-15 03:29] VITALS: PULSE 74
[2017-01-15] MEDS: SODIUM CHLOR 0.9% 1000 ML INJ 1,000 ML IV SCH (05:30)
[2017-01-15] MEDS: INSULIN ASPART SUPPLEMENTAL SCALE SQ SCH ×2 (05:33→11:00)
[2017-01-15 08:00] VITALS: BP 160/83; PULSE 74; PULSE 79; RESP 16; TEMP 97.1; O2SAT 95
[2017-01-15 08:24] LABS: POTASSIUM 3.4 MEQ/L (3.5-5.1)
[2017-01-15 08:51] LABS: CALCIUM-PROTEIN CORRECTED 7.4 MG/DL (8.5-10.1)
[2017-01-15] MEDS: SODIUM CHLORIDE 0.9% FLUSH 5 ML FLUSH FLUSH SCH (09:00)
[2017-01-15] MEDS ORDERED: LOSARTAN 25 MG TAB PO SCH (09:00)
--- NOTE | 2017-01-15 11:40 | HHI.HP ---
[facility] Primary [facility] Physician Richelle Pennington Do, MD Admission Diagnosis hypocalcemia/hypomagnesemia/hypokalemia Diagnoses: (1) Medication side effects (2) Hypocalcemia (3) Hypokalemia (4) Hypomagnesemia (5) Tingling in extremities Chief Complaint: Facial Tingling as well as in extremities Travel History International Travel<30 Days: No Contact w/Intl Traveler <30 Da: No Traveled to Known Affected Are: No History of Present Illness 89 year-old female with a history of lymphoma, auditory hallucination who was recently prescribed Ziprasidone 2 days presented to the ED yesterday for evaluation of an acute onset of facial tingling as well as in extremities associated with shortness of breath without any chest pain. Patient was also found to have abnormal labs including hypokalemia, hypocalcemia and hypomagnesemia. She denies any diarrhea or constipation. There is no GI bleed , hematuria or hemoptysis. During my exam me patient reported improvement of facial and extremity tingling and denies any shortness of breath. However, she continued to report auditory hallucination times several months duration Review of Systems Other 12 systems reviewed and are negative except for the ones mentioned in the history of present illness Past Family Social History Past Medical History Diabetes mellitus, hypertension, hyperlipidemia, lymphoma Past Surgical History Bilateral knee replacement Reported Medications Lomotil (Diphenoxylate-Atropine) 2.5-0.025 Mg Tab 1 Tab PO Q6H PRN 3 Days Reported Vitamin C Gummies (Ascorbic Acid) 120 Mg Chew 240 Mg CHEW DAILY D3 Adult Gummy (Cholecalciferol) 1,000 Unit Chew 2,000 Units CHEW DAILY [B 12 Gummies] 2 Chew CHEW DAILY Triamcinolone Topical (Triamcinolone Acetonide) 0.1% Cream 1 Applic TOPICAL DAILY PRN Ziprasidone 20 Mg Cap 20 Mg PO HS Metformin (Metformin HCl) 500 Mg Tab 500 Mg PO BID With meals Loratadine 10 Mg Tab 10 Mg PO DAILY Arthritis Pain ER 8 HR (Acetaminophen) 650 Mg Tab 650 Mg PO BID Zocor (Simvastatin) 20 Mg Tab 20 Mg PO AC DINNER Losartan (Losartan Potassium) 25 Mg Tab 25 Mg PO DAILY Omeprazole 40 Mg Cap 40 Mg PO AC DINNER Allergies: Coded Allergies: Codeine (Verified Allergy, Severe, Nausea/Vomiting/diarrhea, 01/14/17) Penicillin (Verified Allergy, Severe, Nausea/Vomiting/diarrhea, 01/14/17) Sulfa (Verified Allergy, Severe, Nausea/Vomiting, 01/14/17) Cipro (Verified Allergy, Intermediate, Nausea/Vomiting, 01/14/17) Latex (Verified Allergy, Unknown, 01/14/17) Uncoded Allergies: MILK & MILK PRODUCTS (Allergy, Intermediate, STOMACH PAINS/, 09/29/15) Family History Mother had Alzheimer's. Sister and brother had cancer. Social History Denies smoking or drinking alcohol Physical Exam Vital Signs Vital Signs Date Time Temp Pulse Resp B/P Pulse Ox O2 Delivery O2 Flow Rate FiO2 01/15/17 08:00 97.1 79 16 160/83 95 01/15/17 03:29 74 01/15/17 03:22 96.8 79 22 145/78 97 01/15/17 03:00 76 20 115/84 96 01/15/17 01:30 74 20 119/72 98 01/14/17 23:32 68 20 122/74 98 01/14/17 21:30 72 20 117/84 96 01/14/17 19:34 86 01/14/17 19:34 86 20 116/67 100 Room Air 01/14/17 18:29 80 18 164/83 99 Room Air 01/14/17 17:52 72 20 98/58 97 Room Air 01/14/17 16:28 72 26 109/47 97 Room Air 01/14/17 15:10 97 Room Air 01/14/17 15:10 97 Room Air 01/14/17 14:42 97.9 80 18 144/80 97 Physical Exam GENERAL: This is a well-nourished, well-developed patient, in no apparent distress. SKIN: No rashes, ecchymoses or lesions. Cool and dry. HEAD: Atraumatic. Normocephalic. No temporal or scalp tenderness. EYES: Pupils equal round and reactive. Extraocular motions intact. No scleral icterus. No injection or drainage. ENT: Nose without bleeding, purulent drainage or septal hematoma. Throat without erythema, tonsillar hypertrophy or exudate. Uvula midline. Airway patent. NECK: Trachea midline. No JVD or lymphadenopathy. Supple, nontender, no meningeal signs. CARDIOVASCULAR: Regular rate and rhythm without murmurs, gallops, or rubs. RESPIRATORY: Clear to auscultation. Breath sounds equal bilaterally. No wheezes , rales, or rhonchi. GASTROINTESTINAL: Abdomen soft, non-tender, nondistended. No hepato-splenomegaly , or palpable masses. No guarding. MUSCULOSKELETAL: Extremities without clubbing, cyanosis, or edema. No joint tenderness, effusion, or edema noted. No calf tenderness. Negative Homans sign bilaterally. NEUROLOGICAL: Awake and alert. Cranial nerves II through XII intact. Motor and sensory grossly within normal limits. Five out of 5 muscle strength in all muscle groups. Normal speech. Laboratory Laboratory Tests Test 01/14/17 01/14/17 01/15/17 16:50 21:40 07:40 White Blood Count 6.3 Red Blood Count 3.87 Hemoglobin 11.9 Hematocrit 35.7 Mean Corpuscular Volume 92.1 Mean Corpuscular Hemoglobin 30.8 Mean Corpuscular Hemoglobin 33.4 Concent Red Cell Distribution Width 13.4 Platelet Count 162 Mean Platelet Volume 9.4 Neutrophils (%) (Auto) 64.8 Lymphocytes (%) (Auto) 26.4 Monocytes (%) (Auto) 7.1 Eosinophils (%) (Auto) 0.8 Basophils (%) (Auto) 0.9 Neutrophils # (Auto) 3.9 Lymphocytes # (Auto) 1.7 Monocytes # (Auto) 0.5 Eosinophils # (Auto) 0.1 Basophils # (Auto) 0.1 CBC Comment DIFF FINAL Differential Comment Sodium Level 146 146 148 Potassium Level 3.3 3.4 3.4 Chloride Level 110 110 112 Carbon Dioxide Level 23.4 26.0 26.0 Anion Gap 13 10 10 Blood Urea Nitrogen 9 9 7 Creatinine 0.77 0.81 0.62 Estimat Glomerular Filtration 71 67 91 Rate Random Glucose 161 135 122 Calcium Level 7.0 6.9 6.7 Protein Corrected Calcium 7.5 7.6 7.4 Magnesium Level 0.7 0.9 B-Type Natriuretic Peptide 112 Total Protein 6.2 5.7 5.7 Thyroid Stimulating Hormone 1.420 3rd Gen Result Diagram: 01/14/17 1650 01/15/17 0740 Assessment and Plan Problem List: (1) Medication side effects ICD Code: T88.7XXA Status: Acute (2) Tingling in extremities ICD Code: R20.2 Status: Acute (3) Hypocalcemia ICD Code: E83.51 Status: Acute (4) Hypomagnesemia ICD Code: E83.42 Status: Acute (5) Auditory hallucinations ICD Code: R44.0 Status: Acute (6) Diabetes mellitus ICD Code: E11.9 Status: Acute (7) Adjustment disorder ICD Code: F43.20 Status: Acute (8) Hypokalemia ICD Code: E87.6 Status: Acute Assessment and Plan 89 year-old female with 1-Medication side effect: Improvement of symptoms. We will hold Ziprasidone until patient follows with psychiatry. 2-Adjustment disorder with auditory hallucination: This appear to be a chronic problem for patient for which she's follow psychiatry, however secondary to medication side effect with continue to hold Ziprasidone until patient sees psychiatry outpatient. 3-Electrolyte abnormalities including hypo-kalemia, hypocalcemia, hypomagnesemia : Replace electrolyte. 4-Diabetes type 2: Resume outpatient medications and continue with sliding scale insulin. 5-DVT prophylaxis: Bilateral SCDs Patient's condition improved since admission therefore she will be discharged home with [facility]. Code Status Full code Discussed Condition With Patient Shane Tavera MD Jan 15, 2017 11:40
--- NOTE | 2017-01-15 11:55 | HHI.PR ---
Addendum to Inpatient Note Addendum Reason: Additional Documentation Additional Information Discharge patient to home Condition on discharge: Improved ADA Diet as tolerated Ad Prema activity Rx written:none Follow-up with primary care physician in one week Recommend outpatient follow-up with psychiatrist Shane Tavera MD Jan 15, 2017 11:55
--- NOTE | 2017-01-15 11:56 | HHI.FF ---
Face to Face Verification Diagnosis: (1) Medication side effects (2) Diabetes mellitus (3) Hypocalcemia (4) Hypomagnesemia (5) Hypokalemia (6) Adjustment disorder Home Health Nursing Order: Signs/symptoms of disease process I have seen patient Cecilia Paredes on 01/15/17. My clinical findings support the need for the requested home health care services because: Deconditioned w/ increased weakness I certify that my clinical findings support that this patient is homebound because: Poor cardiac reserve Shane Tavera MD Jan 15, 2017 11:56
[2017-01-15] MEDS ORDERED: CALCIUM CARBONATE 1.25 GM (CA 500 MG) TAB PO ONE (12:00)
[2017-01-15] MEDS ORDERED: POTASSIUM CHLORIDE 10 MEQ CONTROLLED RELEASE TAB PO ONE (12:00)
[2017-01-15] MEDS ORDERED: MAGNESIUM OXIDE 400 MG TAB PO ONE (12:00)
[2017-01-15 14:13] VITALS: PULSE 74
--- NOTE | 2017-01-15 15:00 | EKG ---
Date Performed: 01/14/2017 Time Performed: 15:03:54 PTAGE: 89 years EKG: Sinus rhythm with PVC(s) with PAC(s) Left axis deviation Inferior T wave changes are nonspecific Abnormal ECG Com pared to prior tracing no significant change PREVIOUS TRACING : 01/12/2017 12.17 DOCTOR: Sagrario Gorman Interpretating Date/Time 01/15/2017 14:53:31
[2017-01-15] MEDS ORDERED: PANTOPRAZOLE SOD 40 MG DELAYED RELEASE TAB PO SCH (16:00)
[2017-01-15] MEDS ORDERED: PRAVASTATIN SOD 40 MG TAB PO SCH (17:00)
[2017-01-15] MEDS ORDERED: metFORMIN HCL 500 MG TAB PO SCH (21:00)
[2017-01-16] MEDS ORDERED: CHOLECALCIFEROL 2000 UNIT CHEW SCH (09:00)
[2017-01-16] MEDS ORDERED: CYANOCOBALAMIN CHEW SCH (09:00)
[2017-01-16] MEDS ORDERED: ASCORBIC ACID CHEW SCH (09:00)
== END 2017-01-15 14:13 | disposition home or self-care (01) | DRG 92 ==
LOC: PHED 14:38 → PHEDA 18:44 → OBSVTOIN 18:50 → PH3A 01-15 03:13
PROVIDERS: ADMIT Hospitalist; ATTEND Hospitalist
DX: R20.2 Paresthesia of skin (principal); R44.0 Auditory hallucinations; E83.42 Hypomagnesemia; E11.9 Type 2 diabetes mellitus without complications; E83.51 Hypocalcemia; T50.905A Adverse effect of unspecified drugs, medicaments and biological substances, initial encounter; E78.5 Hyperlipidemia, unspecified; E87.6 Hypokalemia; I10 Essential (primary) hypertension; K21.9 Gastro-esophageal reflux disease without esophagitis; F43.20 Adjustment disorder, unspecified; H40.9 Unspecified glaucoma; F41.9 Anxiety disorder, unspecified; Z85.72 Personal history of non-Hodgkin lymphomas; Z96.653 Presence of artificial knee joint, bilateral
CPT/HCPCS: 71010; 80048; 82948; 83735; 83880; 84155; 84443; 85025; 93005; 96365; J0610; J2405; J3475; J7030

== ENCOUNTER 2017-05-14 15:40 | Observation (INO) | payer MEDICARE, OTHER ==
[~2017-05-14] VITALS: Ht 165.1 cm; Wt 60.1 kg
[~2017-05-14 15:40] MED LIST changes: -LOMO2.5T PO; -ZIPR1CAP6 PO
[2017-05-14 15:45] VITALS: BP 180/84; PULSE 80; RESP 16; TEMP 98.3; O2SAT 95
[2017-05-14] MEDS ORDERED: FURO1TAB62 PO (15:52)
[2017-05-14] MEDS ORDERED: GLIM2TAB PO (15:52)
[2017-05-14] MEDS ORDERED: SIMV40TA PO (15:52)
[2017-05-14 15:55] VITALS: O2SAT 95
[2017-05-14] MEDS ORDERED: SODIUM CHLORID 0.9% 500 ML INJ 500 ML IV ONE (16:00)
[2017-05-14] MEDS ORDERED: SODIUM CHLORIDE 0.9% FLUSH 10 ML FLUSH IVF PRN (16:00)
[2017-05-14] MEDS ORDERED: MECL-62 PO (16:01)
[2017-05-14] MEDS ORDERED: ASPI81CH CHEW (16:01)
[2017-05-14 16:02] VITALS: BP_SYST 159; BP_SYST 166; BP_DIAS 72; BP_DIAS 78; RESP 16
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
[2017-05-14 16:18] LABS: AUTOMATED NEUTROPHIL # 7.2 TH/MM3 (1.8-7.7); BASOPHIL % 0.4 % (0.0-2.0); EOSINOPHIL % 0.1 % (0.0-4.0); HEMATOCRIT 37.9 % (35.0-46.0); HEMO FLAGS DIFF FINAL; LYMPH % 8.8 % (9.0-44.0); LYMPHOCYTE # 0.7 TH/MM3 (1.0-4.8); MEAN CELL VOLUME 94.2 FL (80.0-100.0); MEAN CORPUSCULAR HEMOGLOBIN 31.6 PG (27.0-34.0); MEAN CORPUSCULAR HGB CONC 33.5 % (32.0-36.0); MONO % 3.4 % (0.0-8.0); NEUT % 87.3 % (16.0-70.0); PLATELET COUNT 157 TH/MM3 (150-450); RED BLOOD COUNT 4.03 MIL/MM3 (4.00-5.30); RED CELL DISTRIBUTION WIDTH 12.5 % (11.6-17.2); WHITE BLOOD COUNT 8.2 TH/MM3 (4.0-11.0)
[2017-05-14 16:29] LABS: CHLORIDE 106 MEQ/L (98-107); SODIUM (NA) 141 MEQ/L (136-145)
[2017-05-14 16:33] LABS: ANION GAP 8 MEQ/L (5-15); BLOOD UREA NITROGEN 10 MG/DL (7-18)
[2017-05-14 16:36] LABS: ALT (GPT) 20 U/L (10-53); AST (GOT) 21 U/L (15-37); GLOMERULAR FILTRATION RATE 80 ML/MIN (>89)
[2017-05-14 16:38] LABS: TOTAL BILIRUBIN ADULT 0.4 MG/DL (0.2-1.0)
[2017-05-14 16:39] LABS: ALKALINE PHOSPHATASE 54 U/L (45-117)
[2017-05-14 16:59] LABS: CREATINE KINASE 63 U/L (26-192)
--- NOTE | 2017-05-14 17:32 | HHI.HP ---
[facility] Richelle Pennington Do, MD Admission Diagnosis generalized weakness, inability to care for self, dehydration Diagnoses: Chief Complaint: weakness Travel History International Travel<30 Days: No Contact w/Intl Traveler <30 Da: No Traveled to Known Affected Are: No History of Present Illness 89 year-old female with PMH of lymphoma, auditory hallucination, diabetes mellitus type 2, HTN who came to the ED for evaluation of worsening weakness and unable to do ADLs. Says she was started on melcizine 2 weeks ago but is not working much . She is compalining of dizziness, and also vertigo with changing positions. Rosemarie manuver done at bedside improved dizziness. The patient states that she got up this morning to use the restroom, had diarrhea, was unable to get off of the toilet secondary to weakness. The patient states she sat on the toilet for approximately 4-5 hours. She was too weak to get up and walk off of the toilet. She does currently live alone, had been driving and cooking her own meals, however, she notes a steady decline over the last several months with her ability to perform activities of daily living. She notes chronic dizziness which she described as lightheadedness and vertigo, associated with mild nausea and diarrhea. The patient was living with her daughter who lives in [facility] several years ago, however, states she can no longer live with her daughter because they "don't get along". The patient states she has no local family members in town. She has been looking at assisted living facilities, looked at a facility in [facility], however, states she is unable to afford the cost of the facility. She denies any current chest pain or shortness of breath. She does note the diarrhea is intermittent, has been ongoing for several months, and is dark and loose without any visible blood. Review of Systems ROS Limitations: Poor Historian Except as stated in HPI: all other systems reviewed are Neg Past Family Social History Past Medical History Diabetes mellitus, hypertension, hyperlipidemia, lymphoma Past Surgical History Bilateral knee replacement Allergies: Coded Allergies: Codeine (Verified Allergy, Severe, Nausea/Vomiting/diarrhea, 05/14/17) Penicillin (Verified Allergy, Severe, Nausea/Vomiting/diarrhea, 05/14/17) Sulfa (Verified Allergy, Severe, Nausea/Vomiting, 05/14/17) Cipro (Verified Allergy, Intermediate, Nausea/Vomiting, 05/14/17) Latex (Verified Allergy, Unknown, 05/14/17) Uncoded Allergies: MILK & MILK PRODUCTS (Allergy, Intermediate, STOMACH PAINS/, 09/29/15) Family History Mother had Alzheimer's. Sister and brother had cancer. Social History Denies smoking or drinking alcohol Physical Exam Vital Signs Vital Signs Date Time Temp Pulse Resp B/P Pulse Ox O2 Delivery O2 Flow Rate FiO2 05/14/17 16:02 81 16 159/72 75 16 166/78 05/14/17 15:55 95 Room Air 05/14/17 15:53 05/14/17 15:45 98.3 80 16 180/84 95 Room Air Physical Exam GENERAL: This is a pleasant 89 yo f , well-nourished, well-developed patient, in some distress due to dizziness /vertigo and nausea keeps eyes closed. SKIN: No rashes, ecchymoses or lesions. Cool and dry. HEAD: Atraumatic. Normocephalic. No temporal or scalp tenderness. EYES: Pupils equal round and reactive. Extraocular motions intact. No scleral icterus. No injection or drainage. ENT: Nose without bleeding, purulent drainage or septal hematoma. Throat without erythema, tonsillar hypertrophy or exudate. Uvula midline. Airway patent. NECK: Trachea midline. No JVD or lymphadenopathy. Supple, nontender, no meningeal signs. CARDIOVASCULAR: Regular rate and rhythm without murmurs, gallops, or rubs. RESPIRATORY: Clear to auscultation. Breath sounds equal bilaterally. No wheezes , rales, or rhonchi. GASTROINTESTINAL: Abdomen soft, non-tender, nondistended. No hepato-splenomegaly , or palpable masses. No guarding. MUSCULOSKELETAL: Extremities without clubbing, cyanosis, or edema. No joint tenderness, effusion, or edema noted. No calf tenderness. Negative Homans sign bilaterally. NEUROLOGICAL: Awake and alert. Cranial nerves II through XII intact. Motor and sensory grossly within normal limits. Five out of 5 muscle strength in all muscle groups. Normal speech. Laboratory Laboratory Tests Test 05/14/17 16:10 White Blood Count 8.2 Red Blood Count 4.03 Hemoglobin 12.7 Hematocrit 37.9 Mean Corpuscular Volume 94.2 Mean Corpuscular Hemoglobin 31.6 Mean Corpuscular Hemoglobin 33.5 Concent Red Cell Distribution Width 12.5 Platelet Count 157 Mean Platelet Volume 9.2 Neutrophils (%) (Auto) 87.3 Lymphocytes (%) (Auto) 8.8 Monocytes (%) (Auto) 3.4 Eosinophils (%) (Auto) 0.1 Basophils (%) (Auto) 0.4 Neutrophils # (Auto) 7.2 Lymphocytes # (Auto) 0.7 Monocytes # (Auto) 0.3 Eosinophils # (Auto) 0.0 Basophils # (Auto) 0.0 CBC Comment DIFF FINAL Differential Comment Sodium Level 141 Potassium Level 4.0 Chloride Level 106 Carbon Dioxide Level 27.0 Anion Gap 8 Blood Urea Nitrogen 10 Creatinine 0.69 Estimat Glomerular Filtration 80 Rate Random Glucose 215 Calcium Level 8.5 Magnesium Level 1.0 Total Bilirubin 0.4 Aspartate Amino Transf 21 (AST/SGOT) Alanine Aminotransferase 20 (ALT/SGPT) Alkaline Phosphatase 54 Total Creatine Kinase 63 Troponin I LESS THAN 0.02 Total Protein 6.5 Albumin 3.7 Result Diagram: 05/14/17 1610 05/14/17 1610 Assessment and Plan Assessment and Plan 89 year-old female with Generalized weakness, progressively getting worse, unable to perform ADLs. Patient says she was looking for [facility] however not able to afford the cost. Consult PT. Consult case management. Dizziness/Vertigo likely BPPV. Improved with Rosemarie maneuver done in the ED. Monitor. Start meclizine. On IVF. Antiemetics as need. Keep normotensive. Diarrhea: check for C diff. Start probiotic. Give IVF. 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 Diabetes type 2: Insulin sliding scale, Accuchecks. DVT prophylaxis: Bilateral SCDs Code Status Full code Discussed Condition With Patient, nurse, Dr Nesbitt ER physician Geno Somers MD May 14, 2017 17:32
[2017-05-14 17:36] VITALS: BP 150/69; PULSE 70; RESP 16; O2SAT 95
[2017-05-14] MEDS ORDERED: SODIUM CHLORIDE 0.9% FLUSH 10 ML FLUSH IV FLUSH PRN (17:45)
[2017-05-14] MEDS ORDERED: ACETAMINOPHEN 325 MG TAB PO PRN (18:00)
[2017-05-14] MEDS ORDERED: LACTULOSE SYRUP 20 GM/30 ML CUP PO PRN (18:00)
[2017-05-14] MEDS ORDERED: ONDANSETRON HCL 4 MG/2 ML VIAL IVP PRN (18:00)
[2017-05-14] MEDS ORDERED: BISACODYL 10 MG SUPP RECTAL PRN (18:00)
[2017-05-14] MEDS ORDERED: SENNOSIDES 8.6 MG TAB PO PRN (18:00)
[2017-05-14] MEDS: SODIUM CHLOR 0.9% 1000 ML INJ 1,000 ML IV SCH (18:04)
[2017-05-14] MEDS ORDERED: ENALAPRILAT 2.5 MG/2 ML VIAL IV PUSH PRN (18:30)
[2017-05-14 20:00] VITALS: BP 161/92; PULSE 74; RESP 16; TEMP 95.1; O2SAT 99
[2017-05-14] MEDS: DOCUSATE SODIUM 50 MG/SENNA 8.6 MG TAB PO SCH (21:00)
[2017-05-14] MEDS ORDERED: TEMAZEPAM 15 MG CAP PO PRN (21:00)
[2017-05-14] MEDS ORDERED: MAGNESIUM HYDROXIDE SUSP 30 ML CUP PO PRN (21:00)
[2017-05-14] MEDS: PRAVASTATIN SOD 80 MG TAB PO SCH (21:00)
[2017-05-14] MEDS: SODIUM CHLORIDE 0.9% FLUSH 10 ML FLUSH IV FLUSH SCH (21:00)
[2017-05-14] MEDS ORDERED: MECLIZINE HCL 25 MG TAB PO PRN (22:00)
[2017-05-15] VITALS: BP 115/65; PULSE 64; RESP 16; TEMP 97.3; O2SAT 96
[2017-05-15] MEDS: SODIUM CHLOR 0.9% 1000 ML INJ 1,000 ML IV SCH ×2 (03:44→14:41)
[2017-05-15 06:28] LABS: AUTOMATED NEUTROPHIL # 2.9 TH/MM3 (1.8-7.7); BASOPHIL % 0.6 % (0.0-2.0); EOSINOPHIL % 0.6 % (0.0-4.0); HEMATOCRIT 34.8 % (35.0-46.0); HEMO FLAGS DIFF FINAL; LYMPH % 37.8 % (9.0-44.0); MEAN CORPUSCULAR HEMOGLOBIN 31.6 PG (27.0-34.0); MEAN CORPUSCULAR HGB CONC 33.3 % (32.0-36.0); MONO % 8.7 % (0.0-8.0); NEUT % 52.3 % (16.0-70.0); PLATELET COUNT 176 TH/MM3 (150-450); RED BLOOD COUNT 3.66 MIL/MM3 (4.00-5.30); RED CELL DISTRIBUTION WIDTH 12.8 % (11.6-17.2); WHITE BLOOD COUNT 5.4 TH/MM3 (4.0-11.0)
[2017-05-15 06:35] LABS: POTASSIUM 3.6 MEQ/L (3.5-5.1)
[2017-05-15 06:39] LABS: BICARBONATE 26.6 MEQ/L (21.0-32.0)
[2017-05-15 08:22] VITALS: BP 129/65; PULSE 59; RESP 19; TEMP 97.5; O2SAT 97
[2017-05-15] MEDS: ASPIRIN 81 MG CHEW TAB CHEW SCH (08:23)
[2017-05-15] MEDS: LOSARTAN 25 MG TAB PO SCH (08:23)
[2017-05-15] MEDS: DOCUSATE SODIUM 50 MG/SENNA 8.6 MG TAB PO SCH ×2 (08:23→21:30)
[2017-05-15] MEDS: FUROSEMIDE 20 MG TAB PO SCH (08:23)
[2017-05-15] MEDS: GLIMEPIRIDE 2 MG TAB PO SCH ×2 (08:24→16:39)
[2017-05-15] MEDS: SODIUM CHLORIDE 0.9% FLUSH 10 ML FLUSH IV FLUSH SCH ×2 (08:24→21:30)
--- NOTE | 2017-05-15 08:47 | HHI.PR ---
Subjective Remarks At the margin of the bed. Patient feels dizzy and has vertigo. She is less nauseated. Was able to eat. Pt at bedside , attempted Hallpike maneuver and Rosemarie , patient still dizzy. Says meclizine doesn't help. Will ask neurology on consult. Patient denies any fever or chills. No n/v/d/c. Objective Vitals Vital Signs Date Time Temp Pulse Resp B/P Pulse Ox O2 Delivery O2 Flow Rate FiO2 05/15/17 08:22 97.5 59 19 129/65 97 05/15/17 00:00 97.3 64 16 115/65 96 05/14/17 20:00 95.1 74 16 161/92 99 05/14/17 17:36 70 16 150/69 95 05/14/17 16:02 81 16 159/72 75 16 166/78 05/14/17 15:55 95 Room Air 05/14/17 15:53 05/14/17 15:45 98.3 80 16 180/84 95 Room Air I/O 05/14/17 05/14/17 05/14/17 05/15/17 05/15/17 05/15/17 07:00 15:00 23:00 07:00 15:00 23:00 Intake Total 215 ml 336 ml Balance 215 ml 336 ml Intake Oral 240 ml IV Total 215 ml 96 ml # Voids 4 3 # Bowel Movements 1 0 Result Diagram: 05/15/17 0510 05/15/17 0510 Objective Remarks GENERAL: This is a pleasant 89 yo f , well-nourished, well-developed patient, doesn't appear in acute distress. CARDIOVASCULAR: Regular rate and rhythm without murmurs, gallops, or rubs. RESPIRATORY: Clear to auscultation. Breath sounds equal bilaterally. No wheezes , rales, or rhonchi. GASTROINTESTINAL: Abdomen soft, non-tender, nondistended. No hepato-splenomegaly , or palpable masses. No guarding. MUSCULOSKELETAL: Extremities without clubbing, cyanosis, or edema. No joint tenderness, effusion, or edema noted. No calf tenderness. Negative Homans sign bilaterally. NEUROLOGICAL: Awake and alert. Cranial nerves II through XII intact. Motor and sensory grossly within normal limits. Five out of 5 muscle strength in all muscle groups. Normal speech. A/P Assessment and Plan 89 year-old female with Generalized weakness, progressively getting worse, unable to perform ADLs. Patient says she was looking to get into [facility] however not able to afford the cost. Consult PT. Consult case management. Dizziness/Vertigo likely BPPV. Improved with Rosemarie maneuver done in the ED. Monitor. Start meclizine. patient still with dizziness and nausea, not able to eat much. Says meclizine doesn't help. Will consult neurology. On IVF. Antiemetics as need. Keep normotensive. Diarrhea: C diff. pending. Started probiotic. Give IVF. 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 Diabetes type 2: Insulin sliding scale, Accuchecks. DVT prophylaxis: Bilateral SCDs Code Status Full code Discussed Condition With Patient, nurse Geno Somers MD May 15, 2017 08:47
--- NOTE | 2017-05-15 09:55 | EKG ---
Date Performed: 05/14/2017 Time Performed: 15:57:55 PTAGE: 89 years EKG: Sinus rhythm PATTERN CONSISTENT WITH PULMONARY DISEASE LEFT ANTERIOR FASCICULAR BLOCK ABNORMAL ECG Compared to pr ior tracing no significant change PREVIOUS TRACING : 01/14/2017 15.03 DOCTOR: Robin Chan Interpretating Date/Time 05/15/2017 09:50:39
[2017-05-15 12:56] VITALS: BP 144/73; PULSE 62; RESP 19; TEMP 96.1; O2SAT 96
[2017-05-15] MEDS: PANTOPRAZOLE SOD 40 MG DELAYED RELEASE TAB PO SCH (16:40)
--- NOTE | 2017-05-15 16:58 | MB ---
cc: FLORY WATKINS M.D. DATE OF : 1925, 89 years old. DATE OF CONSULTATION: 05/15/2017 REASON FOR CONSULTATION: Vertigo, dizziness. HISTORY OF PRESENT ILLNESS: This is an 89-year-old woman somewhat of a poor historian as to the events but has a history of lymphoma, hallucinations, diabetes, hypertension, came in because she was having a lot of dizziness which she describes as spinning with change of position and then she describes it as lightheadedness. She had some Rosemarie maneuver done and some improvement. She states it started about seven years ago while she was living in [place]. She has also had an business initiatives manager and ENT work with her. She has done some PT there but she does not remember if it has helped or not. However, she was given some meclizine by the admitting physician and she states it makes her worse. PAST MEDICAL HISTORY: As stated. ALLERGIES CODEINE. PENICILLIN SULFA CIPRO LATEX MILK PRODUCTS FAMILY HISTORY: Alzheimer's disease and cancer in a brother and sister. Mother had Alzheimer's disease. SOCIAL HISTORY: She does not smoke or drink. PHYSICAL EXAMINATION: VITAL SIGNS: Temperature 96.1, pulse 62, respiratory rate 19, blood pressure 143/73. GENERAL: She is an elderly woman lying in bed in no acute distress. NECK: Supple. I do not appreciate any bruits. HEART: Regular. NEUROLOGIC: She is awake, alert. She is oriented. Speech is fluent but she is hypophonic. Pupils reactive. Visual cohen full. She does have decreased hearing to finger rub. Motor: No drift, no leg lag. Cerebellar, no past pointing. Gait is withhold due to dizziness. DTRs are 1+, LABORATORY DATA: Reviewed. IMAGING STUDIES: None for today's admission. IMPRESSION: The patient is an 89 year-old woman with dizziness, possible vertigo, possible vertebrobasilar insufficiency, less likely stroke. I will go ahead and order an MRI of the brain, MRA [place] and get a carotid ultrasound. Will have PT work with her and see if they can do any vestibular rehab. Continue her on aspirin. Control blood pressure. If her workup is negative, sometimes in these cases for severe vertigo, low dose diazepam 2 milligrams, maybe in her case 1 milligram p.r.n., one to two times a day may be an option, however, I do not believe that she can live alone. She probably needs to be placed into a safer environment. Will continue to monitor her. Will have PT work with her. Will get the studies done. Further recommendations will be made as needed. Please call me if any questions or concerns. MD SHEA Loera/ZOË /3:27 PM /4:52 PM
[2017-05-15 17:28] VITALS: BP 168/89; PULSE 62; RESP 19; TEMP 96.7; O2SAT 76
--- NOTE | 2017-05-15 17:37 | RADRPT ---
EXAM DATE/TIME: 05/15/2017 16:39 [facility] COMPARISON: No previous studies available for comparison. INDICATIONS : Syncope. MEDICAL HISTORY : Hypercholesterolemia. Hypertension. Congestive heart failure. Glaucoma. Head trauma. Hyperlipidemia. Dyspnea. Arthritis. Lymphoma. Throat cancer. Measles. Blood transfusion. Osteoporosis. Measles. Chem otherapy. SURGICAL HISTORY : Tonsillectomy. Cholecystectomy. Foot surgery. ENCOUNTER: Initial ACUITY: 1 day PAIN SCORE: 6/10 LOCATION: Bilateral neck PEAK SYSTOLIC VELOCITIES (cm/sec): ICA/CCA RATIO: Right: 1.2 Left: 1.2 ICA: Right: 69 Left: 79 CCA: Right: 60 Left: 66 ECA: Right: 65 Left: 55 VERTEBRAL: Right: 36 antegrade Left: 38 antegrade Elevated flow velocities and ICA/CCA ratios have been found to correlate with increased degrees of vessel stenosis, calculated as percentage of diameter relative to a normal segment of distal ICA/CCA FINDINGS: Antegrade flow is seen in both vertebral arteries. There is mild atherosclerotic plaquing at the orig in of both ICAs without any significant stenosis. CONCLUSION: No evidence for hemodynamically significant stenosis. Flory Munguia MD on May 15, 2017 at 17:35 Board Certified Radiologist. This report was verified electronically.
[2017-05-15 20:00] VITALS: BP 152/72; PULSE 64; RESP 16; TEMP 97.1; O2SAT 97
[2017-05-15 21:20] LABS: BLOOD, URINE NEG (NEG); GLUCOSE,URINE NEG (NEG); KETONE, URINE NEG (NEG); NITRITE,URINE NEG (NEG)
[2017-05-15 21:26] LABS: COMMENT (UR) CULT NOT INDICATED; CULTURE IF INDICATED CULT NOT INDICATED; SQUAMOUS EPITHELIAL CELL URINE 0-5 /hpf (0-5); URINE COLOR YELLOW (YELLW/STRAW)
[2017-05-15] MEDS: PRAVASTATIN SOD 80 MG TAB PO SCH (21:30)
[2017-05-15] MEDS ORDERED: GLUCAGON 1 MG/ML VIAL OTHER PRN (22:00)
[2017-05-15] MEDS ORDERED: DEXTROSE 50% IN WATER 50 ML VIAL(D50) IV PRN (22:00)
[2017-05-16] VITALS: BP 141/72; PULSE 64; RESP 16; TEMP 95; O2SAT 95
[2017-05-16] MEDS: SODIUM CHLOR 0.9% 1000 ML INJ 1,000 ML IV SCH ×3 (02:20→18:45)
--- NOTE | 2017-05-16 08:23 | HHI.PR ---
Subjective Remarks Patient in bed, Says she is still dizzy however some improvement since yesterday. No n/v/d/c. She is able to eat. Denies chest pain, sob, headache. No fever or chills. Objective Vitals Vital Signs Date Time Temp Pulse Resp B/P Pulse Ox O2 Delivery O2 Flow Rate FiO2 05/16/17 00:00 95.0 64 16 141/72 95 05/15/17 20:00 97.1 64 16 152/72 97 05/15/17 17:28 96.7 62 19 168/89 76 05/15/17 12:56 96.1 62 19 144/73 96 I/O 05/15/17 05/15/17 05/15/17 05/16/17 05/16/17 05/16/17 07:00 15:00 23:00 07:00 15:00 23:00 Intake Total 336 ml 1180 ml 1400 ml Output Total 250 ml Balance 336 ml 930 ml 1400 ml Intake Oral 240 ml 1180 ml IV Total 96 ml 1400 ml Output Urine Total 250 ml # Voids 3 6 # Bowel Movements 0 0 Result Diagram: 05/15/17 0510 05/15/17 0510 Imaging Last Impressions Carotid Artery Ultrasound 05/15/17 0000 Signed Impressions: Service Date/Time: Monday, May 15, 2017 16:39 - CONCLUSION: No evidence for hemodynamically significant stenosis. Flory Munguia MD Objective Remarks GENERAL: This is a pleasant 89 yo f , well-nourished, well-developed patient, doesn't appear in acute distress. CARDIOVASCULAR: Regular rate and rhythm without murmurs, gallops, or rubs. RESPIRATORY: Clear to auscultation. Breath sounds equal bilaterally. No wheezes , rales, or rhonchi. GASTROINTESTINAL: Abdomen soft, non-tender, nondistended. No hepato-splenomegaly , or palpable masses. No guarding. MUSCULOSKELETAL: Extremities without clubbing, cyanosis, or edema. No joint tenderness, effusion, or edema noted. No calf tenderness. Negative Homans sign bilaterally. NEUROLOGICAL: Awake and alert. Cranial nerves II through XII intact. Motor and sensory grossly within normal limits. Five out of 5 muscle strength in all muscle groups. Normal speech. A/P Assessment and Plan 89 year-old female with Generalized weakness, progressively getting worse, unable to perform ADLs. Patient says she was looking to get into [facility] however not able to afford the cost. Consult PT. Consult case management. Dizziness/Vertigo likely BPPV. Improved with Rosemarie maneuver done in the ED. Monitor. Start meclizine. patient still with dizziness and nausea, not able to eat much. Says meclizine doesn't help. Will consult neurology. On IVF. Antiemetics as need. Keep normotensive. Had Carotid US normal Plan for MRI/MRA brain if normal can start diazepam and patient is cleared for DC form neurology standpoint per Dr Fall, neurology. Diarrhea: C diff. if diarrhea reoccur. Started probiotic. Give IVF. 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 Diabetes type 2: Insulin sliding scale, Accuchecks. DVT prophylaxis: Bilateral SCDs Code Status Full code Discussed Condition With Patient, nurse Geno Somers MD May 16, 2017 08:23
[2017-05-16] MEDS ORDERED: MECLIZINE HCL 25 MG TAB PO ONE (08:30)
[2017-05-16 08:36] VITALS: BP 145/76; PULSE 62; RESP 16; TEMP 96.5; O2SAT 98
[2017-05-16] MEDS: SODIUM CHLORIDE 0.9% FLUSH 10 ML FLUSH IV FLUSH SCH ×2 (09:00→22:13)
[2017-05-16] MEDS: LOSARTAN 25 MG TAB PO SCH (09:50)
[2017-05-16] MEDS: FUROSEMIDE 20 MG TAB PO SCH (09:52)
[2017-05-16] MEDS: DOCUSATE SODIUM 50 MG/SENNA 8.6 MG TAB PO SCH ×2 (09:52→22:13)
[2017-05-16] MEDS: ASPIRIN 81 MG CHEW TAB CHEW SCH (09:52)
[2017-05-16] MEDS: GLIMEPIRIDE 2 MG TAB PO SCH ×2 (09:56→15:18)
[2017-05-16] MEDS ORDERED: GLUCAGON 1 MG/ML VIAL OTHER PRN (11:45)
[2017-05-16] MEDS ORDERED: DEXTROSE 50% IN WATER 50 ML VIAL(D50) IV PRN (11:45)
--- NOTE | 2017-05-16 11:46 | HHI.DS ---
Discharge Summary Admission Date May 14, 2017 at 17:25 Discharge Date: May 17, 2017 Admitting Diagnosis generalized weakness, inability to care for self, dehydration (1) Vertigo ICD Code: R42 Diagnosis: Principal (2) Generalized weakness ICD Code: R53.1 Diagnosis: Principal (3) Dehydration ICD Code: E86.0 Diagnosis: Secondary Procedures none Brief History - From Admission 89 year-old female with PMH of lymphoma, auditory hallucination, diabetes mellitus type 2, HTN who came to the ED for evaluation of worsening weakness and unable to do ADLs. Says she was started on melcizine 2 weeks ago but is not working much . She is compalining of dizziness, and also vertigo with changing positions. Rosemarie manuver done at bedside improved dizziness. The patient states that she got up this morning to use the restroom, had diarrhea, was unable to get off of the toilet secondary to weakness. The patient states she sat on the toilet for approximately 4-5 hours. She was too weak to get up and walk off of the toilet. She does currently live alone, had been driving and cooking her own meals, however, she notes a steady decline over the last several months with her ability to perform activities of daily living. She notes chronic dizziness which she described as lightheadedness and vertigo, associated with mild nausea and diarrhea. The patient was living with her daughter who lives in [facility] several years ago, however, states she can no longer live with her daughter because they "don't get along". The patient states she has no local family members in town. She has been looking at assisted living facilities, looked at a facility in [facility], however, states she is unable to afford the cost of the facility. She denies any current chest pain or shortness of breath. She does note the diarrhea is intermittent, has been ongoing for several months, and is dark and loose without any visible blood. CBC/BMP: 05/15/17 0510 05/15/17 0510 Significant Findings Laboratory Tests Test 05/14/17 05/15/17 16:10 05:10 Neutrophils (%) (Auto) 87.3 % (16.0-70.0) Lymphocytes (%) (Auto) 8.8 % (9.0-44.0) Lymphocytes # (Auto) 0.7 TH/MM3 (1.0-4.8) Estimat Glomerular Filtration 80 ML/MIN (>89) Rate Random Glucose 215 MG/DL (74-106) Magnesium Level 1.0 MG/DL (1.5-2.5) Troponin I LESS THAN 0.02 NG/ML (0.02-0.05) Red Blood Count 3.66 MIL/MM3 (4.00-5.30) Hematocrit 34.8 % (35.0-46.0) Monocytes (%) (Auto) 8.7 % (0.0-8.0) Calcium Level 7.8 MG/DL (8.5-10.1) Imaging Last Impressions Head Magnetic Resonance Angiography 05/16/17 0000 Signed Impressions: Service Date/Time: Tuesday, May 16, 2017 12:12 - CONCLUSION: Diffuse atherosclerotic disease with areas of luminal narrowing scattered throughout as detailed above. No high-grade stenoses appreciated. Han Gunter Jr., MD Brain MRI 05/16/17 0000 Signed Impressions: Service Date/Time: Tuesday, May 16, 2017 12:12 - CONCLUSION: 1. No acute intracranial abnormality. 2. Chronic small vessel ischemic change. Han Gunter Jr., MD Carotid Artery Ultrasound 05/15/17 0000 Signed Impressions: Service Date/Time: Monday, May 15, 2017 16:39 - CONCLUSION: No evidence for hemodynamically significant stenosis. Flory Munguia MD PE at Discharge GENERAL: This is a pleasant 89 yo f , well-nourished, well-developed patient, doesn't appear in acute distress. CARDIOVASCULAR: Regular rate and rhythm without murmurs, gallops, or rubs. RESPIRATORY: Clear to auscultation. Breath sounds equal bilaterally. No wheezes , rales, or rhonchi. GASTROINTESTINAL: Abdomen soft, non-tender, nondistended. No hepato-splenomegaly , or palpable masses. No guarding. MUSCULOSKELETAL: Extremities without clubbing, cyanosis, or edema. No joint tenderness, effusion, or edema noted. No calf tenderness. Negative Homans sign bilaterally. NEUROLOGICAL: Awake and alert. Cranial nerves II through XII intact. Motor and sensory grossly within normal limits. Five out of 5 muscle strength in all muscle groups. Normal speech. Pt update on day of discharge Feels much better. She was able to ambulate with PT , she doesn't want to go to SNF. Meds helps for dizziness. Eating well. No weakness, no mental status change. Patient denies chest pain , sob, n/v/d/c. Hospital Course 89 year-old female with Generalized weakness, progressively getting worse, unable to perform ADLs. Patient says she was looking to get into [facility] however not able to afford the cost. Consult PT. Consult case management. Dizziness/Vertigo likely BPPV. Improved with Rosemarie maneuver done in the ED. Monitor. Start meclizine. patient still with dizziness and nausea, not able to eat much. Says meclizine doesn't help. Will consult neurology. On IVF. Antiemetics as need. Keep normotensive. Had Carotid US normal Plan for MRI/MRA brain if normal can start diazepam and patient is cleared for DC form neurology standpoint per Dr Fall, neurology. Also neurology recommends starting diazepam if MRI/MRA no acute changes. Patient was started on diazepam and she did improved significantly. Instructed DO NOT DRIVE until cleared by neurology. Diarrhea: C diff. if diarrhea reoccur. Started probiotic. Give IVF. 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 Diabetes type 2: Insulin sliding scale, Accuchecks. DVT prophylaxis: Bilateral SCDs Code Status Full code Discussed Condition With Patient, nurse, Dr Fall. Discharge home with home health. Patient improved. She will go home with home health and will decide going to [facility] later. She is also refusing SNF . DC home with home health . To follow up as OP with PCP and consultants. Pt Condition on Discharge: Stable Discharge Disposition: Disch w/ Home Health Serv Discharge Time: > 30 minutes Discharge Instructions DIET: Follow Instructions for: Heart Healthy Diet Activities you can perform: Regular-No Restrictions Follow up Referrals: Neurology - 2 Weeks with Kisha Fall MD PCP Follow-up - 3-5 Days SNF/[facility]/ with [facility] New Medications: Diazepam (Diazepam) 2 Mg Tab 2 MG PO BID PRN vertigo/dizziness #60 Ref 0 TAB Continued Medications: Aspirin (Aspirin) 81 Mg Chew 81 MG CHEW DAILY Ref 0 TAB Furosemide (Lasix) 20 Mg Tab 20 MG PO DIRECTED #30 Ref 0 TAB Glimepiride (Glimepiride) 2 Mg Tab 2 MG PO BIDAC Blood Sugar Management #60 Ref 0 TAB Losartan (Losartan) 25 Mg Tab 25 MG PO DAILY Blood Pressure Management #30 Ref 0 TAB Meclizine (Meclizine) 25 Mg Tab 25 MG PO DIRECTED PRN VERTIGO Ref 0 TAB Omeprazole (Omeprazole) 40 Mg Cap 40 MG PO AC DINNER #30 Ref 0 CAP Simvastatin (Simvastatin) 40 Mg Tab 40 MG PO HS Cholesterol Management #30 Ref 0 TAB ([B 12 Gummies]) 2 CHEW CHEW DAILY Geno Somers MD May 16, 2017 11:46
[2017-05-16 13:21] VITALS: BP 196/77; PULSE 70; RESP 15; TEMP 96.6; O2SAT 97
--- NOTE | 2017-05-16 14:05 | RADRPT ---
EXAM DATE/TIME: 05/16/2017 12:12 [facility] COMPARISON: No previous studies available for comparison. INDICATIONS : Unsteady gait. MEDICAL HISTORY : None. SURGICAL HISTORY : Total knee replacement, right. Total knee replacement, left. ENCOUNTER: Initial ACUITY: 2 day PAIN SCORE: 0/10 LOCATION: Head TECHNIQUE: Multiplanar, multisequence MRI of the brain was performed without contrast. FINDINGS: CEREBRUM: The ventricles are normal for age. No evidence of midline shift, mass lesion, hemorrhage or acute in farction. No extraaxial fluid collections are seen. The pituitary gland and suprasellar cistern are normal in configuration. WHITE MATTER: Scattered foci of high flair signal within the periventricular white matter of both cerebral hemisphe res. POSTERIOR FOSSA: The cerebellum and brainstem are intact. The 4th ventricle is midline. The cerebellopontine angle is unremarkable. The cerebellar tonsils are normal in position. DIFFUSION IMAGING: No focal areas of restricted diffusion are seen. No evidence of acute infarction. EXTRACRANIAL: The visualized portions of the orbits and paranasal sinuses are unremarkable. CONCLUSION: 1. No acute intracranial abnormality. 2. Chronic small vessel ischemic change. Han Gunter Jr., MD on May 16, 2017 at 14:01 Board Certified Radiologist. This report was verified electronically.
--- NOTE | 2017-05-16 14:12 | RADRPT ---
EXAM DATE/TIME: 05/16/2017 12:12 [facility] COMPARISON: No previous studies available for comparison. INDICATIONS : Unsteady gait. MEDICAL HISTORY : None. SURGICAL HISTORY : Total knee replacement, right. Total knee replacement, left. ENCOUNTER: Initial ACUITY: 2 day PAIN SCORE: 0/10 LOCATION: head Please note a normal MRA of the brain does not entirely exclude the possibility of a small aneurysm, nor the possibility of distal intracranial vessel disease. TECHNIQUE: 3D time of flight MRA was performed. Source images, multiplanar STS MIP, and 3D volume MIP reconstru ctions were reviewed. FINDINGS: There is excellent visualization of the major intracranial arteries out to the second-order branch ve ssels. Diffuse atherosclerotic plaque throughout the entire intracranial vasculature. Areas of modera te luminal narrowing are seen involving the supraclinoid and intercavernous ICAs bilaterally as well as scattered throughout the M1 segments bilaterally. A mild stenosis is seen involving the mid basila r artery. Mild luminal narrowing seen involving the right P1 segment. There is no evidence for aneury sm, vessel truncation or evidence for vascular malformation. CONCLUSION: Diffuse atherosclerotic disease with areas of luminal narrowing scattered throughout as detailed abov e. No high-grade stenoses appreciated. Han Gunter Jr., MD on May 16, 2017 at 14:04 Board Certified Radiologist. This report was verified electronically.
[2017-05-16] MEDS: PANTOPRAZOLE SOD 40 MG DELAYED RELEASE TAB PO SCH (15:18)
[2017-05-16] MEDS: MECLIZINE HCL 25 MG TAB PO SCH ×2 (15:18→22:14)
[2017-05-16] MEDS: INSULIN ASPART SUPPLEMENTAL SCALE SQ SCH ×2 (16:00→21:00)
[2017-05-16 17:12] VITALS: BP 140/70; PULSE 65; RESP 14; TEMP 97.7; O2SAT 96
[2017-05-16] MEDS ORDERED: DIAZEPAM 2 MG TAB PO ONE (17:30)
[2017-05-16 20:00] VITALS: BP 165/83; PULSE 74; RESP 20; TEMP 97.6; O2SAT 98
[2017-05-16] MEDS ORDERED: DIAZEPAM 2 MG TAB PO SCH (21:00)
[2017-05-16] MEDS: PRAVASTATIN SOD 80 MG TAB PO SCH (22:13)
[2017-05-17] VITALS: BP 147/68; PULSE 68; RESP 16; TEMP 97.9; O2SAT 96
[2017-05-17] MEDS: SODIUM CHLOR 0.9% 1000 ML INJ 1,000 ML IV SCH (06:11)
[2017-05-17] MEDS: INSULIN ASPART SUPPLEMENTAL SCALE SQ SCH (06:13)
[2017-05-17] MEDS: MECLIZINE HCL 25 MG TAB PO SCH (06:16)
[2017-05-17] MEDS: GLIMEPIRIDE 2 MG TAB PO SCH (06:16)
[2017-05-17] MEDS ORDERED: DIAZEPAM 2 MG TAB PO SCH (09:00)
[2017-05-17] MEDS: SODIUM CHLORIDE 0.9% FLUSH 10 ML FLUSH IV FLUSH SCH (09:00)
[2017-05-17] MEDS ORDERED: DIAZ2TAB PO (09:01)
[2017-05-17] MEDS: ASPIRIN 81 MG CHEW TAB CHEW SCH (09:25)
[2017-05-17] MEDS: DOCUSATE SODIUM 50 MG/SENNA 8.6 MG TAB PO SCH (09:25)
[2017-05-17] MEDS: FUROSEMIDE 20 MG TAB PO SCH (09:25)
[2017-05-17] MEDS: LOSARTAN 25 MG TAB PO SCH (09:25)
== END 2017-05-17 15:16 | disposition home or self-care (01) ==
LOC: PHED 15:40 → PHEDA 17:25 → PH3A 18:44
PROVIDERS: ADMIT Hospitalist; ATTEND Hospitalist
DX: R42 Dizziness and giddiness (principal); R53.1 Weakness; E86.0 Dehydration; I10 Essential (primary) hypertension; E11.9 Type 2 diabetes mellitus without complications; A04.7 Enterocolitis due to Clostridium difficile; F43.20 Adjustment disorder, unspecified; F41.9 Anxiety disorder, unspecified; R44.0 Auditory hallucinations; Z79.899 Other long term (current) drug therapy; E78.00 Pure hypercholesterolemia, unspecified; K21.9 Gastro-esophageal reflux disease without esophagitis; R94.31 Abnormal electrocardiogram [ECG] [EKG]
CPT/HCPCS: 70544; 70551; 80048; 80053; 81001; 82550; 82948; 83735; 84484; 85025; 93005; 93880; 96360; 97110; 97116; 97162; 99285; G0378; G8987; G8988; J2405; J7030; J7040; P9612

== ENCOUNTER 2017-06-15 18:01 | Inpatient (IN) | payer OTHER, MEDICARE ==
[~2017-06-15] VITALS: Ht 162.6 cm; Wt 58.4 kg
[~2017-06-15 18:01] MED LIST changes: -ACET5TAB2 PO; -ASCO1CHW3 CHEW; +ASPI81CH CHEW; +DIAZ2TAB PO; +FURO1TAB62 PO; +GLIM2TAB PO; -LORA10TA PO; +MECL-62 PO; -METF500T PO; +SIMV40TA PO; -TRIA.1%T TOPICAL; -ZOCO20TA PO; -[UNRECOGNIZED DRUG - CODE] CHEW
[2017-06-15 18:12] VITALS: BP 188/102; PULSE 93; RESP 16; TEMP 98.6
--- NOTE | 2017-06-15 18:24 | PD ---
HPI Chief Complaint: Fall Time Seen by Provider: 18:24 Travel History International Travel<30 days: No Contact w/Intl Traveler<30days: No Traveled to known affect area: No History of Present Illness HPI 89 -year-old female with history of CAD, hypertension, diabetes, chronic back pain, presents to emergency department for evaluation of multiple falls. She had 7 falls today and struck her head twice. She states she did not lose consciousness. She states that she "just falls backwards" and can't stop herself. Patient lives alone and states that sometimes her neighbors find her or somebody comes to the house. Today when her neighbors came over she asked them to call the ambulance. She is reporting significant head pain and low back pain. Patient states she is scheduled to move into assisted living facility July 19 because she cannot longer live by herself. She is concerned with a new medication that her primary care provider gave her that it is causing her falls. She cannot recall the name at this time. She denies a chest x-ray fitness. Difficulty breathing. No fever or chills. No focal deficits or weakness. She has no other symptoms reported. PFSH Past Medical History Arthritis: Yes (KNEES) Asthma: No Autoimmune Disease: No Blood Disorders: No Anxiety: Yes Depression: No Heart Rhythm Problems: No Cancer: Yes (LYMPHOMA/THROAT) Cardiovascular Problems: Yes High Cholesterol: Yes Chemotherapy: Yes Chest Pain: No COPD: No Cerebrovascular Accident: No Diabetes: Yes Patient Takes Glucophage: No Diminished Hearing: Yes Endocrine: Yes Gastrointestinal Disorders: Yes GERD: Yes Glaucoma: Yes (LEFT EYE, USES DROPS) Genitourinary: Yes (PESSARY FOR FALLEN BLADDER) Headaches: Yes Hepatitis: No Hiatal Hernia: No Hypertension: Yes Immune Disorder: No Implanted Vascular Access Dvce: Yes (removed) Kidney Stones: No Musculoskeletal: Yes Neurologic: Yes Psychiatric: Yes Reproductive: Yes (HYSTERECTOMY R/T FIBROIDS AFTER 3RD CHILD([id number])) Respiratory: Yes Migraines: Yes Myocardial Infarction: No Radiation Therapy: No Renal Failure: No Seizures: No Sickle Cell Disease: No Sleep Apnea: No Thyroid Disease: No Ulcer: No Menopausal: Yes Past Surgical History Abdominal Surgery: No AICD: No Appendectomy: No Arteriovenous Shunt: No Cardiac Surgery: No Cholecystectomy: Yes Ear Surgery: No Endocrine Surgery: No Eye Surgery: Yes Genitourinary Surgery: No Gynecologic Surgery: Yes (HYSTERECTOMY) Hysterectomy: Yes Insulin Pump: No Joint Replacement: Yes (BILAT KNEES) Neurologic Surgery: No Oral Surgery: Yes (TEETH REMOVED FOR DENTURES) Pacemaker: No Thoracic Surgery: No Other Surgery: Yes Social History Alcohol Use: No Tobacco Use: No Substance Use: No Allergies-Medications (Allergen,Severity, Reaction): Coded Allergies: Codeine (Verified Allergy, Severe, Nausea/Vomiting/diarrhea, 05/14/17) Penicillin (Verified Allergy, Severe, Nausea/Vomiting/diarrhea, 05/14/17) Sulfa (Verified Allergy, Severe, Nausea/Vomiting, 05/14/17) Cipro (Verified Allergy, Intermediate, Nausea/Vomiting, 05/14/17) Latex (Verified Allergy, Unknown, 05/14/17) Uncoded Allergies: MILK & MILK PRODUCTS (Allergy, Intermediate, STOMACH PAINS/, 09/29/15) Reported Meds & Prescriptions Reported Meds & Active Scripts Active Diazepam 2 Mg Tab 2 Mg PO BID PRN Reported Tylenol Arthritis (Acetaminophen) 650 Mg Tablet.er 650 Mg PO BID Allerclear (Loratadine) 10 Mg Tablet 10 Mg PO DAILY PRN Phenergan (Promethazine HCl) 25 Mg Tablet 25 Mg PO TID Cipro (Ciprofloxacin HCl) 500 Mg Tab 500 Mg PO BID Metformin (Metformin HCl) 500 Mg Tab 500 Mg PO BID With meals Zocor (Simvastatin) 20 Mg Tab 20 Mg PO HS Meclizine (Meclizine HCl) 25 Mg Tab 25 Mg PO TID Lasix (Furosemide) 20 Mg Tab 20 Mg PO DAILY PRN [B 12 Gummies] 2 Chew CHEW DAILY Losartan (Losartan Potassium) 25 Mg Tab 25 Mg PO DAILY Omeprazole 40 Mg Cap 40 Mg PO AC DINNER Review of Systems Except as stated in HPI: all other systems reviewed are Neg Physical Exam Narrative GENERAL: Well-nourished elderly female patient, lying in bed in no acute distress SKIN: Focused skin assessment warm/dry. HEAD: Normocephalic. Tenderness elicited to palpation of the posterior scalp. EYES: Pupils equal and round. No scleral icterus. No injection or drainage. ENT: No nasal bleeding or discharge. Mucous membranes pink and moist. NECK: Trachea midline. No JVD. Cervical collar is in place. CARDIOVASCULAR: Regular rate and rhythm. RESPIRATORY: No accessory muscle use. Clear to auscultation. Breath sounds equal bilaterally. GASTROINTESTINAL: Abdomen soft, non-tender, nondistended. Hepatic and splenic margins not palpable. MUSCULOSKELETAL: No obvious deformities. No clubbing. No cyanosis. No edema. Tenderness elicited palpation of the lumbar spine. No crepitus. No step-off. No deformity. NEUROLOGICAL: Awake and alert. No obvious cranial nerve deficits. Motor grossly within normal limits. Normal speech. PSYCHIATRIC: Appropriate mood and affect; insight and judgment normal. Data Data Last Documented VS Vital Signs Date Time Temp Pulse Resp B/P Pulse Ox O2 Delivery O2 Flow Rate FiO2 06/15/17 20:00 78 18 174/89 96 06/15/17 18:48 Room Air 06/15/17 18:12 98.6 Orders Electrocardiogram (06/15/17 18:) Ammonia (06/15/17 18:) Complete Blood Count With Diff (06/15/17 18:19) Comprehensive Metabolic Panel (06/15/17 18:19) Creatine Kinase (Cpk) (06/15/17 18:19) Prothrombin Time / Inr (Pt) (06/15/17 18:19) Act Partial Throm Time (Ptt) (06/15/17 18:19) Troponin I (06/15/17 18:19) Thyroid Stimulating Hormone (06/15/17 18:19) Urinalysis - C+S If Indicated (06/15/17 18:19) Chest, Single Ap (06/15/17 18:19) Ct Brain W/O Iv Contrast(Rout) (06/15/17 18:19) Blood Glucose (06/15/17 18:19) Ecg Monitoring (06/15/17 18:19) Iv Access Insert/Monitor (06/15/17 18:19) Oximetry (06/15/17 18:19) Sodium Chloride 0.9% Flush (Ns Flush) (06/15/17 18:30) Drug Screen, Random Urine (06/15/17 18:19) Alcohol (Ethanol) (06/15/17 18:19) Ct Cerv Spine W/O Contrast (06/15/17 ) Ct Abd/Pel W Iv Contrast(Rout) (06/15/17 ) Lipase (06/15/17 18:19) Sodium Chlorid 0.9% 500 Ml Inj (Ns 500 M (06/15/17 18:30) Ct Lumb Spine W/O Contrast (06/15/17 ) Iohexol 350 Inj (Omnipaque 350 Inj) (06/15/17 21:16) Remove Cervical Collar (06/15/17 21:49) Labs Laboratory Tests Test 06/15/17 18:40 White Blood Count 7.7 TH/MM3 Red Blood Count 4.17 MIL/MM3 Hemoglobin 13.8 GM/DL Hematocrit 39.7 % Mean Corpuscular Volume 95.2 FL Mean Corpuscular Hemoglobin 33.2 PG Mean Corpuscular Hemoglobin 34.8 % Concent Red Cell Distribution Width 13.4 % Platelet Count 173 TH/MM3 Mean Platelet Volume 9.4 FL Neutrophils (%) (Auto) 69.7 % Lymphocytes (%) (Auto) 21.4 % Monocytes (%) (Auto) 8.0 % Eosinophils (%) (Auto) 0.5 % Basophils (%) (Auto) 0.4 % Neutrophils # (Auto) 5.3 TH/MM3 Lymphocytes # (Auto) 1.6 TH/MM3 Monocytes # (Auto) 0.6 TH/MM3 Eosinophils # (Auto) 0.0 TH/MM3 Basophils # (Auto) 0.0 TH/MM3 CBC Comment DIFF FINAL Differential Comment Prothrombin Time 11.7 SEC Prothromb Time International 1.1 RATIO Ratio Activated Partial 25.2 SEC Thromboplast Time Urine Color LIGHT-YELLOW Urine Turbidity CLEAR Urine pH 7.0 Urine Specific [place] 1.007 Urine Protein NEG mg/dL Urine Glucose (UA) NEG mg/dL Urine Ketones TRACE mg/dL Urine Occult Blood NEG Urine Nitrite NEG Urine Bilirubin NEG Urine Urobilinogen LESS THAN 2.0 MG/DL Urine Leukocyte Esterase NEG Urine WBC 1 /hpf Urine Squamous Epithelial 1 /hpf Cells Urine Transitional Epithelial <1 /hpf Cells Urine Mucus FEW /lpf Microscopic Urinalysis Comment CATH-CULT NOT IND Sodium Level 145 MEQ/L Potassium Level 3.6 MEQ/L Chloride Level 106 MEQ/L Carbon Dioxide Level 26.7 MEQ/L Anion Gap 12 MEQ/L Blood Urea Nitrogen 9 MG/DL Creatinine 0.87 MG/DL Estimat Glomerular Filtration 61 ML/MIN Rate Random Glucose 138 MG/DL Calcium Level 9.0 MG/DL Total Bilirubin 0.5 MG/DL Aspartate Amino Transf 22 U/L (AST/SGOT) Alanine Aminotransferase 24 U/L (ALT/SGPT) Alkaline Phosphatase 53 U/L Ammonia 22 MCMOL/L Total Creatine Kinase 85 U/L Troponin I LESS THAN 0.02 NG/ML Total Protein 7.3 GM/DL Albumin 4.1 GM/DL Lipase 149 U/L Thyroid Stimulating Hormone 0.728 uIU/ML 3rd Gen Urine Opiates Screen NEG Urine Barbiturates Screen NEG Urine Amphetamines Screen NEG Urine Benzodiazepines Screen NEG Urine Cocaine Screen NEG Urine Cannabinoids Screen NEG Ethyl Alcohol Level 3 MG/DL MDM Medical Decision Making Medical Screen Exam Complete: Yes Emergency Medical Condition: Yes Medical Record Reviewed: Yes Differential Diagnosis Electrolyte abnormality versus UTI versus inability to ambulate versus intracranial etiology Narrative Course 89 year-old female presents to the emergency department today for evaluation following multiple falls. Patient did strike her head. She reports no loss of consciousness. Patient is oriented 3. She follows commands and moves all extremities well. Laboratory Tests Test 06/15/17 18:40 White Blood Count 7.7 TH/MM3 Red Blood Count 4.17 MIL/MM3 Hemoglobin 13.8 GM/DL Hematocrit 39.7 % Mean Corpuscular Volume 95.2 FL Mean Corpuscular Hemoglobin 33.2 PG Mean Corpuscular Hemoglobin 34.8 % Concent Red Cell Distribution Width 13.4 % Platelet Count 173 TH/MM3 Mean Platelet Volume 9.4 FL Neutrophils (%) (Auto) 69.7 % Lymphocytes (%) (Auto) 21.4 % Monocytes (%) (Auto) 8.0 % Eosinophils (%) (Auto) 0.5 % Basophils (%) (Auto) 0.4 % Neutrophils # (Auto) 5.3 TH/MM3 Lymphocytes # (Auto) 1.6 TH/MM3 Monocytes # (Auto) 0.6 TH/MM3 Eosinophils # (Auto) 0.0 TH/MM3 Basophils # (Auto) 0.0 TH/MM3 CBC Comment DIFF FINAL Differential Comment Prothrombin Time 11.7 SEC Prothromb Time International 1.1 RATIO Ratio Activated Partial 25.2 SEC Thromboplast Time Urine Color LIGHT-YELLOW Urine Turbidity CLEAR Urine pH 7.0 Urine Specific [place] 1.007 Urine Protein NEG mg/dL Urine Glucose (UA) NEG mg/dL Urine Ketones TRACE mg/dL Urine Occult Blood NEG Urine Nitrite NEG Urine Bilirubin NEG Urine Urobilinogen LESS THAN 2.0 MG/DL Urine Leukocyte Esterase NEG Urine WBC 1 /hpf Urine Squamous Epithelial 1 /hpf Cells Urine Transitional Epithelial <1 /hpf Cells Urine Mucus FEW /lpf Microscopic Urinalysis Comment CATH-CULT NOT IND Sodium Level 145 MEQ/L Potassium Level 3.6 MEQ/L Chloride Level 106 MEQ/L Carbon Dioxide Level 26.7 MEQ/L Anion Gap 12 MEQ/L Blood Urea Nitrogen 9 MG/DL Creatinine 0.87 MG/DL Estimat Glomerular Filtration 61 ML/MIN Rate Random Glucose 138 MG/DL Calcium Level 9.0 MG/DL Total Bilirubin 0.5 MG/DL Aspartate Amino Transf 22 U/L (AST/SGOT) Alanine Aminotransferase 24 U/L (ALT/SGPT) Alkaline Phosphatase 53 U/L Ammonia 22 MCMOL/L Total Creatine Kinase 85 U/L Troponin I LESS THAN 0.02 NG/ML Total Protein 7.3 GM/DL Albumin 4.1 GM/DL Lipase 149 U/L Thyroid Stimulating Hormone 0.728 uIU/ML 3rd Gen Urine Opiates Screen NEG Urine Barbiturates Screen NEG Urine Amphetamines Screen NEG Urine Benzodiazepines Screen NEG Urine Cocaine Screen NEG Urine Cannabinoids Screen NEG Ethyl Alcohol Level 3 MG/DL Last Impressions Head CT 06/15/171818 Signed Impressions: Service Date/Time: Thursday, June 15, 2017 20:43 - CONCLUSION: 1. No acute intracranial abnormalities. nAthony Reyes MD Chest X-Ray 06/15/171818 Signed Impressions: Service Date/Time: Thursday, June 15, 2017 18:22 - CONCLUSION: No acute disease. Josse Orr MD Lumbar Spine CT 06/15/17 0000 Signed Impressions: Service Date/Time: Thursday, June 15, 2017 21:08 - CONCLUSION: 1. No acute fracture. Degenerative changes as above. Anthony Reyes MD Cervical Spine CT 06/15/17 0000 Signed Impressions: Service Date/Time: Thursday, June 15, 2017 20:43 - CONCLUSION: 1. No acute findings. Stable degenerative change compared with October 2016. Anthony Reyes MD Abdomen/Pelvis CT 06/15/17 0000 Signed Impressions: Service Date/Time: Thursday, June 15, 2017 21:08 - CONCLUSION: 1. No acute findings within the abdomen and pelvis. Small hiatal hernia. No acute traumatic injury identified in the abdomen and pelvis. Anthony Reyes MD Diagnosis Primary Impression: Multiple falls Additional Impressions: Minor head injury without loss of consciousness Qualified Code: S09.90XA - Minor head injury without loss of consciousness, initial encounter Low back pain Qualified Code: M54.5 - Midline low back pain without sciatica, unspecified chronicity Admitting Information Admitting Physician Requests: Observation Condition: Stable Keri Hatch Jun 15, 2017 18:24
[2017-06-15] MEDS ORDERED: SODIUM CHLORID 0.9% 500 ML INJ 500 ML IV ONE (18:30)
[2017-06-15] MEDS ORDERED: SODIUM CHLORIDE 0.9% FLUSH 5 ML FLUSH IV FLUSH PRN (18:30)
--- NOTE | 2017-06-15 18:52 | RADRPT ---
EXAM DATE/TIME: 06/15/2017 18:22 [facility] COMPARISON: CHEST SINGLE AP, January 14, 2017, 15:17. INDICATIONS : Fell today. MEDICAL HISTORY : None. SURGICAL HISTORY : None. ENCOUNTER: Initial ACUITY: 1 day PAIN SCORE: 0/10 LOCATION: Bilateral chest FINDINGS: A single view of the chest demonstrates the lungs to be symmetrically aerated without evidence of mas s, infiltrate or effusion. The cardiomediastinal contours are unremarkable. Osseous structures are intact. CONCLUSION: No acute disease. Josse Orr MD on June 15, 2017 at 18:49 Board Certified Radiologist. This report was verified electronically.
[2017-06-15 19:04] LABS: AUTOMATED NEUTROPHIL # 5.3 TH/MM3 (1.8-7.7); BASOPHIL % 0.4 % (0.0-2.0); EOSINOPHIL % 0.5 % (0.0-4.0); HEMATOCRIT 39.7 % (35.0-46.0); HEMO FLAGS DIFF FINAL; LYMPH % 21.4 % (9.0-44.0); LYMPHOCYTE # 1.6 TH/MM3 (1.0-4.8); MEAN CELL VOLUME 95.2 FL (80.0-100.0); MEAN CORPUSCULAR HEMOGLOBIN 33.2 PG (27.0-34.0); MEAN CORPUSCULAR HGB CONC 34.8 % (32.0-36.0); NEUT % 69.7 % (16.0-70.0); PLATELET COUNT 173 TH/MM3 (150-450); RED BLOOD COUNT 4.17 MIL/MM3 (4.00-5.30); RED CELL DISTRIBUTION WIDTH 13.4 % (11.6-17.2); WHITE BLOOD COUNT 7.7 TH/MM3 (4.0-11.0)
[2017-06-15] MEDS ORDERED: ZOCO20TA PO (19:04)
[2017-06-15] MEDS ORDERED: METF500T PO (19:07)
[2017-06-15] MEDS ORDERED: CIPR-9 PO (19:09)
[2017-06-15] MEDS ORDERED: PROM25TA10 PO (19:09)
[2017-06-15] MEDS ORDERED: KLS10TAB6 PO (19:10)
[2017-06-15 19:11] LABS: BLOOD, URINE NEG (NEG); GLUCOSE,URINE NEG (NEG); KETONE, URINE TRACE mg/dL (NEG); MUCUS URINE FEW /lpf (OCC); NITRITE,URINE NEG (NEG); SQUAMOUS EPITHELIAL CELL URINE 1 /hpf (0-5); TRANSITIONAL EPI CELLS, URINE <1 /hpf; URINE COLOR LIGHT-YELLOW (YELLW/STRAW)
[2017-06-15] MEDS ORDERED: ACET650T67 PO (19:11)
[2017-06-15 19:14] LABS: COMMENT (UR) CATH-CULT NOT IND; CULTURE IF INDICATED CATH CULTURE NOT IND
[2017-06-15 19:32] LABS: APTT (PATIENT) 25.2 SEC (24.3-30.1); INTERNATIONAL NORMALIZED RATIO 1.1 RATIO; PROTHROMBIN TIME - PATIENT 11.7 SEC (9.8-11.6)
[2017-06-15 20:00] VITALS: BP 174/89; PULSE 78; RESP 18; O2SAT 96
[2017-06-15 20:37] LABS: AMPHETAMINE, URINE NEG (NEG); BARBITURATES, URINE NEG (NEG); COCAINE, URINE NEG (NEG)
[2017-06-15 20:45] LABS: ALT (GPT) 24 U/L (10-53); ANION GAP 12 MEQ/L (5-15); AST (GOT) 22 U/L (15-37); BICARBONATE 26.7 MEQ/L (21.0-32.0); BLOOD UREA NITROGEN 9 MG/DL (7-18); CHLORIDE 106 MEQ/L (98-107); GLOMERULAR FILTRATION RATE 61 ML/MIN (>89); POTASSIUM 3.6 MEQ/L (3.5-5.1); SODIUM (NA) 145 MEQ/L (136-145)
--- NOTE | 2017-06-15 20:53 | RADRPT ---
EXAM DATE/TIME: 06/15/2017 20:43 [facility] COMPARISON: No previous studies available for comparison. INDICATIONS : Fall altered mental status. RADIATION DOSE: 51.87 CTDIvol (mGy) ; Tabletop CT Head MEDICAL HISTORY : Hypertension. Cardiovascular disease Lymphoma, Diabetes SURGICAL HISTORY : Hysterectomy. Cholecystectomy. ENCOUNTER: Initial ACUITY: 1 day PAIN SCALE: 10/10 LOCATION: cranial TECHNIQUE: Multiple contiguous axial images were obtained of the head. Using automated exposure control and adj ustment of the mA and/or kV according to patient size, radiation dose was kept as low as reasonably a chievable to obtain optimal diagnostic quality images. DICOM format image data is available electro nically for review and comparison. FINDINGS: CEREBRUM: The ventricles are normal for age. No evidence of midline shift, mass lesion, hemorrhage or acute in farction. No extra-axial fluid collections are seen. POSTERIOR FOSSA: The cerebellum and brainstem are intact. The 4th ventricle is midline. The cerebellopontine angle i s unremarkable. EXTRACRANIAL: The visualized portion of the orbits is intact. SKULL: The calvaria is intact. No evidence of skull fracture. CONCLUSION: 1. No acute intracranial abnormalities. Anthony Reyes MD on June 15, 2017 at 20:50 Board Certified Radiologist. This report was verified electronically.
[2017-06-15 20:54] LABS: ALKALINE PHOSPHATASE 53 U/L (45-117); TOTAL BILIRUBIN ADULT 0.5 MG/DL (0.2-1.0)
[2017-06-15 21:04] LABS: CREATINE KINASE 85 U/L (26-192)
[2017-06-15] MEDS ORDERED: IOHEXOL 350 MG/ML 10 ML VIAL (for RAD DIAG) IV ONE (21:16)
--- NOTE | 2017-06-15 21:17 | RADRPT ---
EXAM DATE/TIME: 06/15/2017 20:43 [facility] COMPARISON: No previous studies available for comparison. INDICATIONS : Fall. RADIATION DOSE: 10.19 CTDIvol (mGy) MEDICAL HISTORY : Cardiovascular disease. Hypertension. Diabetes, Lymphoma SURGICAL HISTORY : Hysterectomy. Cholecystectomy. ENCOUNTER: Initial ACUITY: 1 day PAIN SCALE: 10/10 LOCATION: Bilateral neck TECHNIQUE: Volumetric scanning of the cervical spine was performed. Multiplanar reconstructions in the sagittal, coronal and oblique axial planes were performed. Using automated exposure control and adjustment o f the mA and/or kV according to patient size, radiation dose was kept as low as reasonably achievable to obtain optimal diagnostic quality images. DICOM format image data is available electronically f or review and comparison. FINDINGS: Compare October 2016. No acute fracture or dislocation. Multilevel degenerative disc disease as abov e. Minimal grade 1 anterolisthesis of C4 on C5. Partial fusion across C5-6. No significant central ca nal stenosis. Stable appearance of left thyroid nodule measuring about 2 cm in maximal diameter. CONCLUSION: 1. No acute findings. Stable degenerative change compared with October 2016. Anthony Reyes MD on June 15, 2017 at 21:11 Board Certified Radiologist. This report was verified electronically.
--- NOTE | 2017-06-15 21:51 | RADRPT ---
EXAM DATE/TIME: 06/15/2017 21:08 [facility] COMPARISON: No previous studies available for comparison. INDICATIONS : Trauma; fall. IV CONTRAST: 80 cc Omnipaque 350 (iohexol) IV ORAL CONTRAST: No oral contrast ingested. RADIATION DOSE: 5.84 CTDIvol (mGy) MEDICAL HISTORY : Cardiovascular disease. Hypertension. Diabetes, Lymphoma SURGICAL HISTORY : Cholecystectomy. Hysterectomy. ENCOUNTER: Initial ACUITY: 1 day PAIN SCALE: 10/10 LOCATION: Bilateral abdomen TECHNIQUE: Volumetric scanning of the abdomen and pelvis was performed. Using automated exposure control and ad justment of the mA and/or kV according to patient size, radiation dose was kept as low as reasonably achievable to obtain optimal diagnostic quality images. DICOM format image data is available electro nically for review and comparison. FINDINGS: Lung bases are clear. Small hiatal hernia. No acute findings in the liver, spleen, adrenals, kidneys or pancreas. No calcified gallstones or biliary ductal dilatation. There is no free fluid. No bowel obstruction. No adenopathy. Bladder is distended. Mild scoliosis. Mo derate degenerative change in the spine. CONCLUSION: 1. No acute findings within the abdomen and pelvis. Small hiatal hernia. No acute traumatic injury id entified in the abdomen and pelvis. Anthony Reyes MD on June 15, 2017 at 21:45 Board Certified Radiologist. This report was verified electronically.
--- NOTE | 2017-06-15 21:54 | RADRPT ---
EXAM DATE/TIME: 06/15/2017 21:08 [facility] COMPARISON: No previous studies available for comparison. INDICATIONS : Trauma; fall. RADIATION DOSE: CTDIvol (mGy) ; Reconstructed from previous dataset, no dose MEDICAL HISTORY : Hypertension. Congestive heart failure. SURGICAL HISTORY : Cholecystectomy. Hysterectomy. ENCOUNTER: Initial ACUITY: 1 day PAIN SCALE: 5/10 LOCATION: lower back TECHNIQUE: Volumetric scanning of the lumbar spine was performed. Multiplanar reconstructions in the sagittal, coronal and oblique axial planes were performed. Using automated exposure control and adjustment of the mA and/or kV according to patient size, radiation dose was kept as low as reasonably achievable t o obtain optimal diagnostic quality images. DICOM format image data is available electronically for review and comparison. FINDINGS: There is a grade 1 retrolisthesis of L1 on L2 and L2 on L3, likely degenerative in nature. No acute f racture. No significant bony canal stenosis. CONCLUSION: 1. No acute fracture. Degenerative changes as above. Anthony Reyes MD on June 15, 2017 at 21:50 Board Certified Radiologist. This report was verified electronically.
[2017-06-15] MEDS ORDERED: SODIUM CHLOR 0.9% 1000 ML INJ 1,000 ML IV SCH (22:34)
--- NOTE | 2017-06-15 22:40 | HHI.HP ---
[facility] Unknown Admission Diagnosis multiple falls; minor head inj; low back pain Diagnoses: (1) Recurrent falls Diagnosis: Principal (2) Gait instability Diagnosis: Principal (3) Dehydration Diagnosis: Principal (4) HTN (hypertension) Diagnosis: Principal (5) DM (diabetes mellitus) Diagnosis: Principal Travel History International Travel<30 Days: No Contact w/Intl Traveler <30 Da: No Traveled to Known Affected Are: No History of Present Illness This is an 89-year-old female with a PMH of HTN, DM, CAD, Anxiety and Chronic Back Pain who was brought to the ER by EMS after recurrent falls. States she lives alone and has difficulty getting around the house, reports approx 7 falls today alone. +head trauma, no LOC. States PCP has made arrangements for her to go to [facility], however she doesn't move in until Jul 19. On arrival, BP 188/102 , HR 93, O2 sat 96% on RA, Afebrile. CBC unremarkable. Chemistry essentially unremarkable except for GFR 61. INR 1.1. UA negative. Urine Drug Screen negative. Alcohol negative. CXR with no acute findings. CT Head negative. Review of Systems Except as stated in HPI: all other systems reviewed are Neg ROS: 14 point review of systems otherwise negative. Past Family Social History Past Medical History PMH: HTN, DM, CAD, Anxiety and Chronic Back Pain Past Surgical History PAST SURGICAL HISTORY: Hysterectomy, Bilateral Knee Replacement, Dental Extraction, Cholecystectomy Allergies: Coded Allergies: Codeine (Verified Allergy, Severe, Nausea/Vomiting/diarrhea, 06/15/17) Penicillin (Verified Allergy, Severe, Nausea/Vomiting/diarrhea, 06/15/17) Sulfa (Verified Allergy, Severe, Nausea/Vomiting, 06/15/17) Cipro (Verified Allergy, Intermediate, Nausea/Vomiting, 06/15/17) Latex (Verified Allergy, Unknown, 06/15/17) Uncoded Allergies: MILK & MILK PRODUCTS (Allergy, Intermediate, STOMACH PAINS/, 09/29/15) Family History PAST FAMILY HISTORY: Reviewed. No h/o DM or CAD Social History PAST SOCIAL HISTORY: Negative for alcohol, tobacco or drugs. Physical Exam Vital Signs Vital Signs Date Time Temp Pulse Resp B/P Pulse Ox O2 Delivery O2 Flow Rate FiO2 06/15/17 20:00 78 18 174/89 96 06/15/17 18:48 Room Air 06/15/17 18:12 98.6 93 16 188/102 Physical Exam PE: GENERAL: Elderly white female in no acute distress. HEENT: PERRLA, EOMI. No scleral icterus or conjunctival pallor. No lid lag or facial droop. CARDIOVASCULAR: Regular rate and rhythm. No obvious murmurs to auscultation. No chest tenderness to palpation. RESPIRATORY: No obvious rhonchi or wheezing. Clear to auscultation. Breath sounds equal bilaterally. GASTROINTESTINAL: Abdomen soft, non-tender, nondistended. BS normal. MUSCULOSKELETAL: Extremities without clubbing, cyanosis, or edema. No obvious deformities. NEUROLOGICAL: Awake, alert and oriented x4. No focal neurologic deficits. Moving both upper and lower extremities spontaneously. Laboratory Laboratory Tests Test 06/15/17 18:40 White Blood Count 7.7 Red Blood Count 4.17 Hemoglobin 13.8 Hematocrit 39.7 Mean Corpuscular Volume 95.2 Mean Corpuscular Hemoglobin 33.2 Mean Corpuscular Hemoglobin 34.8 Concent Red Cell Distribution Width 13.4 Platelet Count 173 Mean Platelet Volume 9.4 Neutrophils (%) (Auto) 69.7 Lymphocytes (%) (Auto) 21.4 Monocytes (%) (Auto) 8.0 Eosinophils (%) (Auto) 0.5 Basophils (%) (Auto) 0.4 Neutrophils # (Auto) 5.3 Lymphocytes # (Auto) 1.6 Monocytes # (Auto) 0.6 Eosinophils # (Auto) 0.0 Basophils # (Auto) 0.0 CBC Comment DIFF FINAL Differential Comment Prothrombin Time 11.7 Prothromb Time International 1.1 Ratio Activated Partial 25.2 Thromboplast Time Urine Color LIGHT-YELLOW Urine Turbidity CLEAR Urine pH 7.0 Urine Specific [place] 1.007 Urine Protein NEG Urine Glucose (UA) NEG Urine Ketones TRACE Urine Occult Blood NEG Urine Nitrite NEG Urine Bilirubin NEG Urine Urobilinogen LESS THAN 2.0 Urine Leukocyte Esterase NEG Urine WBC 1 Urine Squamous Epithelial 1 Cells Urine Transitional Epithelial <1 Cells Urine Mucus FEW Microscopic Urinalysis Comment CATH-CULT NOT IND Sodium Level 145 Potassium Level 3.6 Chloride Level 106 Carbon Dioxide Level 26.7 Anion Gap 12 Blood Urea Nitrogen 9 Creatinine 0.87 Estimat Glomerular Filtration 61 Rate Random Glucose 138 Calcium Level 9.0 Total Bilirubin 0.5 Aspartate Amino Transf 22 (AST/SGOT) Alanine Aminotransferase 24 (ALT/SGPT) Alkaline Phosphatase 53 Ammonia 22 Total Creatine Kinase 85 Troponin I LESS THAN 0.02 Total Protein 7.3 Albumin 4.1 Lipase 149 Thyroid Stimulating Hormone 0.728 3rd Gen Urine Opiates Screen NEG Urine Barbiturates Screen NEG Urine Amphetamines Screen NEG Urine Benzodiazepines Screen NEG Urine Cocaine Screen NEG Urine Cannabinoids Screen NEG Ethyl Alcohol Level 3 Result Diagram: 06/15/17183906/15/171839 Assessment and Plan Problem List: (1) Recurrent falls ICD Code: R29.6 Status: Acute (2) Gait instability ICD Code: R26.81 Status: Acute (3) Dehydration ICD Code: E86.0 Status: Acute (4) HTN (hypertension) ICD Code: I10 Status: Acute (5) DM (diabetes mellitus) ICD Code: E11.9 Status: Acute Assessment and Plan A/P: 1. Recurrent Falls: x7 today, +head trauma, no LOC reported. CT Head w/ no acute findings, images reviewed by me. 2. Gait Instability: w/ recurrent falls as above, pt lives alone, unsafe d/c home. Arrangements made by PCP for [facility] however pt states she doesn't move in until Jul 19. PT for eval/tx. Case Management for assistance w/ placement if needed. 3. Dehydration: GFR 61, BUN/Creatinine normal. U/a negative. IVF, repeat labs in am. 4. HTN: BP 180's on arrival, resume home medications, monitor BP. 5. DM: Sliding scale w/ Accu-Cheks, hold Metformin in light of dehydration, resume after IVF. 6. DVT Prophylaxis: SCD/Teds. 7. Social work for d/c planning as needed. 8. Case discussed w/ ER physician at length. Ingrid Hardy MD Jun 15, 2017 22:40
[2017-06-15] MEDS ORDERED: SODIUM CHLORIDE 0.9% FLUSH 10 ML FLUSH IV FLUSH PRN (22:45)
[2017-06-15] MEDS ORDERED: MAGNESIUM HYDROXIDE SUSP 30 ML CUP PO PRN (22:45)
[2017-06-15] MEDS ORDERED: DIAZEPAM 2 MG TAB PO PRN (22:45)
[2017-06-15] MEDS ORDERED: BISACODYL 10 MG SUPP RECTAL PRN (22:45)
[2017-06-15] MEDS ORDERED: ONDANSETRON HCL 4 MG/2 ML VIAL IVP PRN (22:45)
[2017-06-15] MEDS ORDERED: SENNOSIDES 8.6 MG TAB PO PRN (22:45)
[2017-06-15] MEDS ORDERED: LACTULOSE SYRUP 20 GM/30 ML CUP PO PRN (22:45)
[2017-06-16] MEDS ORDERED: GLUCAGON 1 MG/ML VIAL OTHER PRN (01:15)
[2017-06-16] MEDS ORDERED: DEXTROSE 50% IN WATER 50 ML VIAL(D50) IV PRN (01:15)
[2017-06-16] MEDS: ACETAMINOPHEN 325 MG TAB PO PRN (01:58)
[2017-06-16 03:06] VITALS: BP 135/66; PULSE 80; RESP 18; TEMP 99.1; O2SAT 95
[2017-06-16 06:17] LABS: AUTOMATED NEUTROPHIL # 2.6 TH/MM3 (1.8-7.7); BASOPHIL % 0.3 % (0.0-2.0); EOSINOPHIL % 0.6 % (0.0-4.0); HEMO FLAGS DIFF FINAL; LYMPH % 37.4 % (9.0-44.0); LYMPHOCYTE # 1.9 TH/MM3 (1.0-4.8); MEAN CELL VOLUME 94.3 FL (80.0-100.0); MEAN CORPUSCULAR HEMOGLOBIN 32.9 PG (27.0-34.0); MEAN CORPUSCULAR HGB CONC 34.9 % (32.0-36.0); MONO % 11.1 % (0.0-8.0); NEUT % 50.6 % (16.0-70.0); PLATELET COUNT 161 TH/MM3 (150-450); RED CELL DISTRIBUTION WIDTH 13.2 % (11.6-17.2); WHITE BLOOD COUNT 5.1 TH/MM3 (4.0-11.0)
[2017-06-16] MEDS: INSULIN ASPART SUPPLEMENTAL SCALE SQ SCH ×4 (06:25→20:12)
[2017-06-16 07:09] LABS: ALKALINE PHOSPHATASE 42 U/L (45-117); ALT (GPT) 17 U/L (10-53); ANION GAP 8 MEQ/L (5-15); AST (GOT) 19 U/L (15-37); BICARBONATE 28.3 MEQ/L (21.0-32.0); BLOOD UREA NITROGEN 7 MG/DL (7-18); CHLORIDE 108 MEQ/L (98-107); GLOMERULAR FILTRATION RATE 80 ML/MIN (>89); SODIUM (NA) 144 MEQ/L (136-145); TOTAL BILIRUBIN ADULT 0.7 MG/DL (0.2-1.0)
[2017-06-16 07:52] VITALS: BP 133/61; PULSE 76; RESP 16; TEMP 98; O2SAT 95
[2017-06-16] MEDS ORDERED: POTASSIUM CHLORIDE 20 MEQ CONTROLLED RELEASE TAB PO ONE (08:00)
[2017-06-16] MEDS: MECLIZINE HCL 25 MG TAB PO SCH ×3 (09:00→17:55)
[2017-06-16] MEDS: DOCUSATE SODIUM 50 MG/SENNA 8.6 MG TAB PO SCH ×2 (09:07→20:12)
[2017-06-16] MEDS: LOSARTAN 25 MG TAB PO SCH (09:07)
[2017-06-16] MEDS: PANTOPRAZOLE SOD 40 MG DELAYED RELEASE TAB PO SCH (09:07)
[2017-06-16] MEDS: SODIUM CHLORIDE 0.9% FLUSH 10 ML FLUSH IV FLUSH SCH ×2 (09:08→20:12)
--- NOTE | 2017-06-16 10:02 | HHI.PR ---
Subjective Remarks Follow-up for dizziness and falls. The patient states she had 7 falls yesterday. She states this is secondary to dizziness. She's been having multiple falls recently even before yesterday. She had a recent admission where she was evaluated by neurology, diagnosed with vertigo, had a negative workup. She states she's tried meclizine and Valium, and reports that they may make her more dizzy. The dizziness is worse with sitting, standing, and turning her head. Occasionally she feels that the room is spinning around her. Currently sitting up eating breakfast, and asymptomatic. She refused SNF previously, currently agreeable. Objective Vitals Vital Signs Date Time Temp Pulse Resp B/P Pulse Ox O2 Delivery O2 Flow Rate FiO2 06/16/17 07:52 98.0 76 16 133/61 95 06/16/17 03:06 99.1 80 18 135/66 95 06/15/17 20:00 78 18 174/89 96 06/15/17 18:48 Room Air 06/15/17 18:12 98.6 93 16 188/102 Result Diagram: 06/16/17 0526 06/16/17525 Imaging Last Impressions Head CT 06/15/171818 Signed Impressions: Service Date/Time: Thursday, June 15, 2017 20:43 - CONCLUSION: 1. No acute intracranial abnormalities. Anthony Reyes MD Chest X-Ray 06/15/171818 Signed Impressions: Service Date/Time: Thursday, June 15, 2017 18:22 - CONCLUSION: No acute disease. Josse Orr MD Lumbar Spine CT 06/15/17 0000 Signed Impressions: Service Date/Time: Thursday, June 15, 2017 21:08 - CONCLUSION: 1. No acute fracture. Degenerative changes as above. Anthony Reyes MD Cervical Spine CT 06/15/17 0000 Signed Impressions: Service Date/Time: Thursday, June 15, 2017 20:43 - CONCLUSION: 1. No acute findings. Stable degenerative change compared with October 2016. Anthony Reyes MD Abdomen/Pelvis CT 06/15/17 0000 Signed Impressions: Service Date/Time: Thursday, June 15, 2017 21:08 - CONCLUSION: 1. No acute findings within the abdomen and pelvis. Small hiatal hernia. No acute traumatic injury identified in the abdomen and pelvis. Anthony Reyes MD Objective Remarks GENERAL: Well-developed well-nourished pleasant elderly female. In no acute distress. SKIN: Warm and dry. No lesions noted. HEENT: Normocephalic. Pupils equal and round. Mucous membranes pink and moist. CARDIOVASCULAR: Regular rate and rhythm. No murmur appreciated. RESPIRATORY: No accessory muscle use. Clear to auscultation. Breath sounds equal bilaterally. GASTROINTESTINAL: Abdomen soft, non-tender, nondistended. Bowel sounds x4. MUSCULOSKELETAL: No obvious deformities. No clubbing or cyanosis. No edema. NEUROLOGICAL: Awake and alert. No focal neurological deficits. Moves upper and lower extremities spontaneously. Normal speech. PSYCHIATRIC: Appropriate mood and affect; insight and judgment normal. A/P Problem List: (1) Recurrent falls ICD Code: R29.6 Status: Acute (2) HTN (hypertension) ICD Code: I10 Status: Chronic (3) DM (diabetes mellitus) ICD Code: E11.9 Status: Chronic (4) Dehydration ICD Code: E86.0 Status: Resolved (5) Gait instability ICD Code: R26.81 Status: Acute (6) Vertigo ICD Code: R42 Status: Acute Assessment and Plan 89-year-old female with a PMH of HTN, DM, CAD, Anxiety and Chronic Back Pain who presented after recurrent falls Recurrent Falls: Secondary to vertigo. X7 falls on the day of admission. + head trauma, no LOC reported. CT Head w/ no acute findings. Fall precautions. Check orthostatics. Gait Instability: w/ recurrent falls as above, pt lives alone, unsafe d/c home. Arrangements made by PCP for [facility] however pt states she doesn't move in until Jul 19. PT consulted, previously recommended SNF on previous admission, await reevaluation. Case management consulted for assistance w/ placement. Vertigo: Patient with recent admission for the same. Evaluated by neurology that time and believe the patient vertigo. Had an unremarkable brain MRI/MRA and carotid ultrasound. Reports no improvement with meclizine or diazepam. Continue PT for vestibular rehabilitation. Dehydration: Creatinine 0.7, improved to 0.69 with IVF overnight. Improved, DC IVF. HTN: Labile. Accelerated upon arrival, currently 130s. Patient sounds orthostatic, we'll check orthostatic blood pressure. Consider decreasing home losartan. Diabetes mellitus: Chronic, controlled. Monitor Accu-Cheks. Sliding scale coverage if needed. Resume metformin at [place]. Hypokalemia: Potassium 3.0. Replace orally. Checked magnesium, which was also low, replace by IV. DVT Prophylaxis: SCD/Teds. Discharge Planning Follow-up PT recommendations, although patient previously required moderate assistance and SNF was recommended. Likely needs SNF placement. Problem Qualifiers (1) HTN (hypertension): Qualified Code: I10 - Essential hypertension (2) DM (diabetes mellitus): Zbigniew Zimmerman Jun 16, 2017 10:02
[2017-06-16] MEDS: MAGNESIUM SULFATE 1 GM PREMIX 100 ML IV SCH ×2 (11:28→13:36)
[2017-06-16 11:32] VITALS: BP_SYST 136; BP_SYST 138; BP_SYST 142; BP_DIAS 64; BP_DIAS 72; BP_DIAS 75; PULSE 79; RESP 16; TEMP 98; O2SAT 94
[2017-06-16 16:30] VITALS: BP 139/70; PULSE 73; RESP 16; TEMP 97.4; O2SAT 95
--- NOTE | 2017-06-16 17:20 | EKG ---
Date Performed: 06/15/2017 Time Performed: 19:27:27 PTAGE: 89 years EKG: Sinus rhythm PATTERN CONSISTENT WITH PULMONARY DISEASE LEFT ANTERIOR FASCICULAR BLOCK ABNORMAL ECG Compared to pr ior tracing no significant change PREVIOUS TRACING : 05/14/2017 15.57 DOCTOR: Gage Vernon Interpretating Date/Time 06/16/2017 17:17:45
[2017-06-16] MEDS: PRAVASTATIN SOD 40 MG TAB PO SCH (20:09)
[2017-06-16 20:32] VITALS: BP 146/64; PULSE 85; RESP 17; TEMP 97.9; O2SAT 93
[2017-06-16 21:00] VITALS: BP 172/81; PULSE 77; RESP 18; TEMP 98.2; O2SAT 96
[2017-06-16] MEDS ORDERED: LOSARTAN 25 MG TAB PO ONE (23:30)
[2017-06-17] VITALS: BP 183/76; PULSE 75; RESP 17; TEMP 97.3; O2SAT 96
[2017-06-17 04:00] VITALS: BP 160/85; PULSE 73; RESP 17; TEMP 97.5; O2SAT 95
[2017-06-17] MEDS: INSULIN ASPART SUPPLEMENTAL SCALE SQ SCH ×4 (05:53→20:29)
[2017-06-17 06:33] LABS: AUTOMATED NEUTROPHIL # 2.6 TH/MM3 (1.8-7.7); BASOPHIL % 0.2 % (0.0-2.0); EOSINOPHIL # 0.1 TH/MM3 (0-0.4); EOSINOPHIL % 2.3 % (0.0-4.0); HEMATOCRIT 36.4 % (35.0-46.0); HEMO FLAGS DIFF FINAL; LYMPH % 36.4 % (9.0-44.0); LYMPHOCYTE # 1.8 TH/MM3 (1.0-4.8); MEAN CELL VOLUME 97.5 FL (80.0-100.0); MEAN CORPUSCULAR HEMOGLOBIN 32.4 PG (27.0-34.0); MEAN CORPUSCULAR HGB CONC 33.2 % (32.0-36.0); NEUT % 51.1 % (16.0-70.0); PLATELET COUNT 140 TH/MM3 (150-450); RED BLOOD COUNT 3.73 MIL/MM3 (4.00-5.30); RED CELL DISTRIBUTION WIDTH 13.4 % (11.6-17.2); WHITE BLOOD COUNT 5.1 TH/MM3 (4.0-11.0)
[2017-06-17 07:06] LABS: BICARBONATE 23.8 MEQ/L (21.0-32.0); MAGNESIUM 1.6 MG/DL (1.5-2.5); POTASSIUM 3.8 MEQ/L (3.5-5.1)
[2017-06-17 08:00] VITALS: BP 150/76; PULSE 73; RESP 19; TEMP 97.7; O2SAT 93
[2017-06-17] MEDS ORDERED: MAGNESIUM SULFATE 1 GM PREMIX 100 ML IV ONE (08:15)
[2017-06-17] MEDS: MECLIZINE HCL 25 MG TAB PO SCH ×3 (08:31→16:50)
[2017-06-17] MEDS: PANTOPRAZOLE SOD 40 MG DELAYED RELEASE TAB PO SCH (08:32)
[2017-06-17] MEDS: DOCUSATE SODIUM 50 MG/SENNA 8.6 MG TAB PO SCH ×2 (08:32→20:10)
[2017-06-17] MEDS: LOSARTAN 25 MG TAB PO SCH (08:32)
[2017-06-17] MEDS: ACETAMINOPHEN 325 MG TAB PO PRN (08:33)
[2017-06-17] MEDS: SODIUM CHLORIDE 0.9% FLUSH 10 ML FLUSH IV FLUSH SCH ×2 (08:34→21:00)
[2017-06-17] MEDS ORDERED: THIAMINE HCL 100 MG TAB PO ONE (11:00)
[2017-06-17 12:00] VITALS: BP 125/71; PULSE 76; RESP 18; TEMP 96; O2SAT 98
[2017-06-17 16:00] VITALS: BP 168/81; PULSE 69; RESP 18; TEMP 96; O2SAT 95
--- NOTE | 2017-06-17 19:24 | HHI.PR ---
Subjective Remarks Patient seen this morning. Says she is feeling all right. Denies nausea. Denies dizziness today. Does not feel she we'll be able to go home. Objective Vital Signs Date Time Temp Pulse Resp B/P Pulse Ox O2 Delivery O2 Flow Rate FiO2 06/17/17 16:00 96.0 69 18 168/81 95 06/17/17 12:00 96.0 76 18 125/71 98 06/17/17 09:33 20 06/17/17 08:00 97.7 73 19 150/76 93 06/17/17 04:00 97.5 73 17 160/85 95 06/17/17 00:00 97.3 75 17 183/76 96 06/16/17 21:00 98.2 77 18 172/81 96 06/16/17 20:32 97.9 85 17 146/64 93 I/O 06/16/17 06/16/17 06/16/17 06/17/17 06/17/17 06/17/17 07:00 15:00 23:00 07:00 15:00 23:00 Intake Total 90 ml 720 ml Balance 90 ml 720 ml Intake Oral 90 ml 720 ml # Voids 3 2 3 # Bowel Movements 0 Result Diagram: 06/17/1751606/17/17516 Objective Remarks GENERAL: patient sitting up in bed. Appears comfortable. SKIN: Warm and dry. HEAD: Normocephalic. EYES: No scleral icterus. No injection or drainage. NECK: Supple, trachea midline. No JVD. CARDIOVASCULAR: Regular rate and rhythm without murmurs, gallops, or rubs. RESPIRATORY: Breath sounds equal bilaterally. No accessory muscle use. GASTROINTESTINAL: Abdomen soft, non-tender, nondistended. MUSCULOSKELETAL: No cyanosis, or edema. BACK: Nontender without obvious deformity. No CVA tenderness. A/P Assessment and Plan 06/17/17 Magnesium 1.6. Improved. Orthostatics negative. Nausea improving. Continues to work with PT. Patient likely will need SNF. 89-year-old female with a PMH of HTN, DM, CAD, Anxiety and Chronic Back Pain who presented after recurrent falls //Recurrent Falls: Secondary to vertigo. X7 falls on the day of admission. + head trauma, no LOC reported. CT Head w/ no acute findings. Fall precautions. Orthostatics negative.. //Gait Instability: w/ recurrent falls as above, pt lives alone, unsafe d/c home. Arrangements made by PCP for [facility] however pt states she doesn't move in until Jul 19. PT recommends SNF versus home health.- - Case management consulted for assistance w/ placement. //Vertigo: Patient with recent admission for the same. Evaluated by neurology that time and believe the patient vertigo. Had an unremarkable brain MRI/MRA and carotid ultrasound. Reports no improvement with meclizine or diazepam. Continue PT for vestibular rehabilitation. //Dehydration: Creatinine 0.7, improved to 0.69 with IVF overnight. Improved, DC IVF. //HTN: Labile. Accelerated upon arrival, currently 130s. -Orthostatics negative. Blood pressure relatively stable. //Diabetes mellitus: Chronic, controlled. Monitor Accu-Cheks. Sliding scale coverage if needed. Resume metformin at [place]. //Hypokalemia: Potassium 3.0. Replace orally. Checked magnesium, which was also low, replace by IV. -06/17. Potassium 3.8. Resolved. //Hypomagnesemia. Magnesium 1.0 on 06/16. Resolved after replacement. DVT Prophylaxis: SCD/Teds. Discharge Planning likely discharge to SNF within the next 1-2 days Boogie Smith MD Jun 17, 2017 19:24
[2017-06-17 20:00] VITALS: BP 166/75; PULSE 75; RESP 18; TEMP 97.8; O2SAT 95
[2017-06-17] MEDS: PRAVASTATIN SOD 40 MG TAB PO SCH (20:10)
[2017-06-18] VITALS: BP 167/76; PULSE 73; RESP 18; TEMP 98; O2SAT 93
[2017-06-18] MEDS: INSULIN ASPART SUPPLEMENTAL SCALE SQ SCH ×2 (07:00→11:00)
[2017-06-18] MEDS: LOSARTAN 25 MG TAB PO SCH (07:24)
[2017-06-18] MEDS: MECLIZINE HCL 25 MG TAB PO SCH ×2 (07:24→12:25)
[2017-06-18] MEDS: DOCUSATE SODIUM 50 MG/SENNA 8.6 MG TAB PO SCH (07:24)
[2017-06-18] MEDS: PANTOPRAZOLE SOD 40 MG DELAYED RELEASE TAB PO SCH (07:24)
[2017-06-18 08:00] VITALS: BP 148/73; PULSE 78; RESP 16; TEMP 97.2; O2SAT 94
[2017-06-18 11:09] VITALS: BP 146/82; PULSE 89; RESP 16; TEMP 96.1; O2SAT 96
[2017-06-18] MEDS ORDERED: PRAV40TA PO (12:27)
[2017-06-18] MEDS ORDERED: DIAZ2TAB PO (12:27)
--- NOTE | 2017-06-18 12:29 | HHI.DS ---
Discharge Summary Admission Date Jun 16, 2017 at 5:49 pm Discharge Date: Jun 18, 2017 Admitting Diagnosis multiple falls; minor head inj; low back pain (1) Recurrent falls ICD Code: R29.6 Diagnosis: Principal (2) HTN (hypertension) ICD Code: I10 (3) DM (diabetes mellitus) ICD Code: E11.9 (4) Dehydration ICD Code: E86.0 (5) Gait instability ICD Code: R26.81 (6) Vertigo ICD Code: R42 Diagnosis: Principal Procedures None. Brief History - From Admission This is an 89-year-old female with a PMH of HTN, DM, CAD, Anxiety and Chronic Back Pain who was brought to the ER by EMS after recurrent falls. States she lives alone and has difficulty getting around the house, reports approx 7 falls today alone. +head trauma, no LOC. [facility] PCP has made arrangements for her to go to [facility], however she doesn't move in until Jul 19. On arrival, BP 188/102 , HR 93, O2 sat 96% on RA, Afebrile. CBC unremarkable. Chemistry essentially unremarkable except for GFR 61. INR 1.1. UA negative. Urine Drug Screen negative. Alcohol negative. CXR with no acute findings. CT Head negative. CBC/BMP: 06/17/17 0517 06/17/17 0517 Significant Findings Laboratory Tests Test 06/15/17 06/16/17 06/17/17 18:40 05:26 05:17 Prothrombin Time 11.7 SEC (9.8-11.6) Urine Ketones TRACE mg/dL (NEG) Urine Mucus FEW /lpf (OCC) Estimat Glomerular Filtration 61 ML/MIN (>89) 80 ML/MIN (>89) 87 ML/MIN (>89) Rate Random Glucose 138 MG/DL 126 MG/DL 130 MG/DL (74-106) (74-106) (74-106) Troponin I LESS THAN 0.02 NG/ML (0.02-0.05) Red Blood Count 3.60 MIL/MM3 3.73 MIL/MM3 (4.00-5.30) (4.00-5.30) Hematocrit 34.0 % (35.0-46.0) Monocytes (%) (Auto) 11.1 % 10.0 % (0.0-8.0) (0.0-8.0) Potassium Level 3.0 MEQ/L (3.5-5.1) Chloride Level 108 MEQ/L 108 MEQ/L (98-107) (98-107) Calcium Level 7.6 MG/DL 8.3 MG/DL (8.5-10.1) (8.5-10.1) Magnesium Level 1.0 MG/DL (1.5-2.5) Alkaline Phosphatase 42 U/L (45-117) Total Protein 5.5 GM/DL (6.4-8.2) Albumin 3.1 GM/DL (3.4-5.0) Platelet Count 140 TH/MM3 (150-450) Imaging Last Impressions Head CT 06/15/171818 Signed Impressions: Service Date/Time: Thursday, June 15, 2017 20:43 - CONCLUSION: 1. No acute intracranial abnormalities. Anthony Reyes MD Chest X-Ray 06/15/171818 Signed Impressions: Service Date/Time: Thursday, June 15, 2017 18:22 - CONCLUSION: No acute disease. Josse Orr MD Lumbar Spine CT 06/15/17 Signed Impressions: Service Date/Time: Thursday, June 15, 2017 21:08 - CONCLUSION: 1. No acute fracture. Degenerative changes as above. Anthony Reyes MD Cervical Spine CT 06/15/17 Signed Impressions: Service Date/Time: Thursday, June 15, 2017 20:43 - CONCLUSION: 1. No acute findings. Stable degenerative change compared with October 2016. Anthony Reyes MD Abdomen/Pelvis CT 06/15/17 0000 Signed Impressions: Service Date/Time: Thursday, June 15, 2017 21:08 - CONCLUSION: 1. No acute findings within the abdomen and pelvis. Small hiatal hernia. No acute traumatic injury identified in the abdomen and pelvis. Anthony Reyes MD PE at Discharge GENERAL: Well-developed well-nourished pleasant elderly female. In no acute distress. SKIN: Warm and dry. No lesions noted. HEENT: Normocephalic. Pupils equal and round. Mucous membranes pink and moist. CARDIOVASCULAR: Regular rate and rhythm. No murmur appreciated. RESPIRATORY: No accessory muscle use. Clear to auscultation. Breath sounds equal bilaterally. GASTROINTESTINAL: Abdomen soft, non-tender, nondistended. Bowel sounds x4. MUSCULOSKELETAL: No obvious deformities. No clubbing or cyanosis. No edema. NEUROLOGICAL: Awake and alert. No focal neurological deficits. Moves upper and lower extremities spontaneously. Normal speech. PSYCHIATRIC: Appropriate mood and affect; insight and judgment normal. Pt update on day of discharge Patient is doing well. She is able to ambulate in the room. No fever, chills. She reports less dizziness when she gets up and walks. Hospital Course 89-year-old female with a PMH of HTN, DM, CAD, Anxiety and Chronic Back Pain who presented after recurrent falls //Recurrent Falls: Secondary to vertigo. X7 falls on the day of admission. + head trauma, no LOC reported. CT Head w/ no acute findings. Fall precautions. Orthostatics negative.. //Gait Instability: w/ recurrent falls as above, pt lives alone, unsafe d/c home. Arrangements made by PCP for [facility] however pt states she doesn't move in until Jul 19. PT recommends SNF versus home health.- - Case management consulted for assistance. After discussing with insurance, patient is being discharged to SNF. //Vertigo: Patient with recent admission for the same. Evaluated by neurology that time and believe the patient vertigo. Had an unremarkable brain MRI/MRA and carotid ultrasound. Continue PT for vestibular rehabilitation. We continued Meclizine and Diazepam. An ENT evaluation may be of help in the outpatient setting. //Dehydration: Creatinine 0.7, improved to 0.69 with IVF overnight. Improved //HTN: Labile. Accelerated upon arrival, currently 130s. -Orthostatics negative. Blood pressure relatively stable. //Diabetes mellitus: Chronic, controlled. Monitor Accu-Cheks. Sliding scale coverage if needed. Resume metformin at DC. //Hypokalemia: Potassium 3.0. Replace orally. Checked magnesium, which was also low, replace by IV. -06/17. Potassium 3.8. Resolved. //Hypomagnesemia. Magnesium 1.0 on 06/16. Resolved after replacement. Pt Condition on Discharge: Good Discharge Disposition: Discharge to SNF Discharge Time: > 30 minutes Discharge Instructions DIET: Follow Instructions for: Diabetic Diet Activities you can perform: Regular-No Restrictions Follow up Referrals: PCP Follow-up - 2 Weeks New Medications: Pravastatin (Pravachol) 40 Mg Tab 40 MG PO HS Cholesterol Management #30 TAB Continued Medications: Acetaminophen (Tylenol Arthritis) 650 Mg Tablet.er 650 MG PO BID ARTHRITIS Diazepam (Diazepam) 2 Mg Tab 2 MG PO BID PRN vertigo/dizziness #60 Ref 0 TAB (This prescription has been renewed) Losartan (Losartan) 25 Mg Tab 25 MG PO DAILY Blood Pressure Management #30 Ref 0 TAB Meclizine (Meclizine) 25 Mg Tab 25 MG PO TID Vertigo Ref 0 TAB Metformin (Metformin) 500 Mg Tab 500 MG PO BID With meals Blood Sugar Management #60 Ref 0 TAB Omeprazole (Omeprazole) 40 Mg Cap 40 MG PO AC DINNER #30 Ref 0 CAP Discontinued Medications: Ciprofloxacin (Cipro) 500 Mg Tab 500 MG PO BID Infection Ref 0 TAB Furosemide (Lasix) 20 Mg Tab 20 MG PO DAILY PRN EDEMA #30 Ref 0 TAB Loratadine (Allerclear) 10 Mg Tablet 10 MG PO DAILY PRN ALLERGIES Promethazine (Phenergan) 25 Mg Tablet 25 MG PO TID Nausea/Vomiting #1 Ref 0 TAB Simvastatin (Zocor) 20 Mg Tab 20 MG PO HS Cholesterol Management #30 Ref 0 TAB ([B 12 Gummies]) 2 CHEW CHEW DAILY Surjit Mane DO Jun 18, 2017 12:29
== END 2017-06-18 17:04 | DRG 914 ==
LOC: NEPC 18:01 → NEDA 22:21 → NEPFCDU 06-16 01:22 → OBSVTOIN 06-16 17:49 → N06A 06-16 20:52
PROVIDERS: ADMIT Hospitalist; ATTEND Hospitalist
DX: S09.90XA Unspecified injury of head, initial encounter (principal); E86.0 Dehydration; E11.9 Type 2 diabetes mellitus without complications; E83.42 Hypomagnesemia; R26.9 Unspecified abnormalities of gait and mobility; W19.XXXA Unspecified fall, initial encounter; Y92.9 Unspecified place or not applicable; R29.6 Repeated falls; I10 Essential (primary) hypertension; E78.00 Pure hypercholesterolemia, unspecified; E87.6 Hypokalemia; I25.10 Atherosclerotic heart disease of native coronary artery without angina pectoris; K21.9 Gastro-esophageal reflux disease without esophagitis; K44.9 Diaphragmatic hernia without obstruction or gangrene; H91.90 Unspecified hearing loss, unspecified ear; H40.9 Unspecified glaucoma; Z85.72 Personal history of non-Hodgkin lymphomas; Z96.653 Presence of artificial knee joint, bilateral
CPT/HCPCS: 70450; 71010; 72125; 72131; 74177; 80048; 80053; 80307; 81001; 82140; 82306; 82550; 82607; 82948; 83690; 83735; 84443; 84484; 85025; 85610; 85730; 93005; 96360; G0378; G8987-GP; G8988-GP; J1815; J3475; J7030; J7040; Q9967